=== PATIENT | female | born 1980 | race Caucasian/White ===

== ENCOUNTER 2016-06-12 14:59 | Outpatient (CLI) | payer MEDICAID | END 2016-06-12 15:00 | disposition home or self-care (01) | DX: M54.2 Cervicalgia (principal); M79.642 Pain in left hand ==

== ENCOUNTER 2016-07-01 07:41 | Outpatient (CLI) | payer MEDICAID | END 2016-07-01 07:42 | disposition home or self-care (01) | DX: M50.221 Other cervical disc displacement at C4-C5 level (principal); M50.321 Other cervical disc degeneration at C4-C5 level ==

== ENCOUNTER 2016-12-24 12:36 | Outpatient (CLI) | payer MEDICAID ==
[2016-12-24 12:55] LABS: ALBUMIN/GLOBULIN RATIO 1.3 (1.0-2.2); BILIRUBIN,TOTAL 0.5 mg/dL (0.2-1.0); BUN - BLOOD UREA NITROGEN 13 mg/dL (6-20); CALCIUM 9.5 mg/dL (8.5-10.3); CARBON DIOXIDE - CO2 21 mmol/L (21-32); CHLORIDE 107 mmol/L (101-111); CHOL/HDL RATIO 4.4 (<4.4); CHOLESTEROL 241 mg/dL; CREATININE 0.8 mg/dL (0.4-1.0); GFR - MDRD 80 (>89); GLUCOSE 87 mg/dL (70-100); HDL CHOLESTEROL 55 mg/dL; LDL/HDL RATIO 2.9 (<4.4); POTASSIUM 4.4 mmol/L (3.5-5.0); SODIUM 138 mmol/L (135-145); TOTAL PROTEIN 8.1 g/dL (6.7-8.2); TRIGLYCERIDES 126 mg/dL; VLDL CHOLESTEROL 25 mg/dL
[2016-12-24 13:04] LABS: BASOPHILS % (AUTO) 0.7 %; EOSINOPHILS # (AUTO) 0.1 10^3/uL (0.0-0.7); EOSINOPHILS % (AUTO) 2.1 %; HCT - HEMATOCRIT 36.2 % (37.0-47.0); HGB - HEMOGLOBIN 11.8 g/dL (12.0-16.0); LYMPHOCYTES # (AUTO) 1.5 10^3/uL (1.5-3.5); LYMPHOCYTES % (AUTO) 28.5 %; MEAN CORPUSCULAR HGB CONC 32.6 g/dL (32.0-36.0); MEAN CORPUSCULAR VOLUME 82.8 fL (81.0-99.0); MEAN PLATELET VOLUME 9.7 fL (7.9-10.8); MONOCYTES # (AUTO) 0.4 10^3/uL (0.0-1.0); MONOCYTES % (AUTO) 7.9 %; NEUTROPHILS # (AUTO) 3.2 10^3/uL (1.5-6.6); NEUTROPHILS % (AUTO) 60.8 %; NUCLEATED RED BLOOD CELLS AUTO 0.1 /100WBC; RED BLOOD COUNT 4.37 10^6/uL (4.20-5.40); RED CELL DISTRIBUTION WIDTH 15.9 % (12.0-15.0); UNCORRECTED WHITE BLOOD COUNT 5.3 x10^3/uL; WHITE BLOOD COUNT 5.3 x10^3/uL (4.8-10.8)
[2016-12-24 13:28] LABS: THYROID STIMULATING HORMONE 19.41 uIU/mL (0.34-5.60)
== END 2016-12-24 12:37 | disposition home or self-care (01) ==
LOC: LAB.N 12:36
PROVIDERS: ATTEND Family Medicine
DX: E03.9 Hypothyroidism, unspecified (principal); D50.9 Iron deficiency anemia, unspecified
CPT/HCPCS: 36415; 80053; 80061; 84439; 84443; 85025

== ENCOUNTER 2017-01-19 09:49 | Emergency (ER) | payer MEDICAID ==
[2017-01-19 10:03] VITALS: BP 119/79
[2017-01-19] MEDS ORDERED: ALBUTEROL NEB 2.5 MG/3 ML INH STA (10:04)
[2017-01-19] MEDS ORDERED: BENZONATATE 100 MG CAPSULE PO STA (10:04)
[2017-01-19] MEDS ORDERED: ALBUTEROL NEB 2.5 MG/3 ML INH ONE (10:21)
--- NOTE | 2017-01-19 10:25 | ED Physician Documentation ---
History of Present Illness - Stated complaint Stated Complaint: DIFF BREATHING - Chief complaint Chief Complaint: Resp - Additonal information Additional information: hx from pt 36 female denies preg slightly immunocompromised 2/2 meds for lupus to ER with 2 days of fever cough sore throat hoarse voice no NVD no travel both her twins are sick and checked into ER too Review of Systems Constitutional: reports: Fever Ears: denies: Ear pain Throat: reports: Sore throat Respiratory: reports: Cough GI: denies: Vomiting, Diarrhea : denies: Now EGA Immunocompromised: reports: Immunocompromised (slightly from lupus meds) PD PAST MEDICAL HISTORY - Past Medical History Past Medical History: Yes Cardiovascular: Deep vein thrombosis Neuro: Seizure disorder Endocrine/Autoimmune: HyPOthyroidism, Systemic lupus erythematosus Musculoskeletal: Fibromyalgia, Rheumatoid arthritis - 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, 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 - Present Medications Home Medications: Ambulatory Orders Medication Instructions Recorded Confirmed Albuterol Sulfate [Proair Hfa 2 puffs INH Q4H PRN #1 inhaler 01/19/17 Inhaler] Benzonatate [Tessalon] 100 mg PO TID PRN #20 capsule 01/19/17 Dextromethorphan/Benzocaine 1 each PO Q6H PRN #10 lozenge 01/19/17 [Cepacol Sorethroat-Cough Will] - Allergies Allergies/Adverse Reactions: Allergies Allergy/AdvReac Type Severity Reaction Status Date / Time nalbuphine [From Nubain] Allergy Unknown Verified 01/19/17 10:01 - Social History Does the pt smoke?: No Smoking Status: Never smoker PD ED PE NORMAL - Vitals Vital signs reviewed: Yes - General General: Alert and oriented X 3 - HEENT HEENT: PERRL, Ears normal, Moist mucous membranes. No: Pharynx benign (no enlarged tonsils but erythematous pharynx with PND) - Cardiac Cardiac: RRR - Respiratory Respiratory: No respiratory distress, Other (decreased debo, coughing) - Derm Derm: Normal color - Neuro Neuro: Alert and oriented X 3 Results - Vitals Vitals: Vital Signs - 24 hr 01/19/17 01/19/17 10:01 10:20 Temperature 36.2 C L Heart Rate 103 H 82 Respiratory 18 20 Rate Blood Pressure 119/79 O2 Saturation 98 Oxygen O2 Source Room air - Labs Labs: Laboratory Tests 01/19/17 10:40 Group A Strep Rapid Negative - Rads (name of study) CXR Radiology: See rad report (neg) Departure - Departure Disposition: 01 Home, Self Care Clinical Impression: Viral URI with cough Condition: Good Instructions: ED URI Viral W Wheezing Follow-Up: Wali Hernandez MD [Primary Care Provider] - Prescriptions: Albuterol Sulfate [Proair Hfa Inhaler] 2 puffs INH Q4H PRN #1 inhaler PRN Reason: Shortness Of Air/Wheezing Benzonatate [Tessalon] 100 mg PO TID PRN #20 capsule PRN Reason: to ease cough Dextromethorphan/Benzocaine [Cepacol Sorethroat-Cough Will] 1 each PO Q6H PRN # 10 lozenge PRN Reason: sore throat Comments: The chest xray did not show pneumonia and the rapid strep test was negative A throat culture will also be run and we will call you if it is positive. But right now, it looks like this is a viral infection. I have prescribed some medications to ease your symptoms. Some viral infections take up to two weeks to clear up so be patient. Follow up with your PMD or return to the ER if worse
[2017-01-19] MEDS ORDERED: BENZONATATE 100 MG CAPSULE PO ONE (10:27)
[2017-01-19 10:58] LABS: RAPID STREP SCREEN REAGENT QC YELLOW (YELLOW)
--- NOTE | 2017-01-19 11:28 | XRAY Preliminary Report ---
Exam: XR CHEST 2 VIEW PA/LAT IMPRESSION: Normal 2-view chest radiography. [facility] SITE ID: [id number]
--- NOTE | 2017-01-19 11:31 | XRAY Report ---
EXAM: CHEST RADIOGRAPHY EXAM DATE: 01/19/2017 10:51 AM. CLINICAL HISTORY: Cough, shortness of breath and fever COMPARISON: None. TECHNIQUE: 2 views. FINDINGS: Lungs/Pleura: No focal opacities evident. No pleural effusion. No pneumothorax. Normal volumes. Mediastinum: Heart and mediastinal contours are unremarkable. Other: None. IMPRESSION: Normal 2-view chest radiography. [facility] Referring Provider Line: [phone] SITE ID: [id number]
== END 2017-01-19 11:41 | disposition home or self-care (01) ==
LOC: ED 09:49
DX: J06.9 Acute upper respiratory infection, unspecified (principal); B97.89 Other viral agents as the cause of diseases classified elsewhere; M32.9 Systemic lupus erythematosus, unspecified; E03.9 Hypothyroidism, unspecified; M79.7 Fibromyalgia; M06.9 Rheumatoid arthritis, unspecified; Z86.718 Personal history of other venous thrombosis and embolism
CPT/HCPCS: 71020; 87070; 87430; 94640; 94664; 99283; A9270; J7613

== ENCOUNTER 2017-03-06 12:32 | Outpatient (CLI) | payer MEDICAID ==
[2017-03-06] MEDS ORDERED: BARIUM SULFATE 135 ML BOTTLE PO ONE (13:43)
[2017-03-06] MEDS ORDERED: BARIUM SULFATE 148 GM POWDER PO ONE (13:43)
--- NOTE | 2017-03-11 16:40 | XRAY Report ---
EXAMINATION: Esophagram 03/06/2017. CLINICAL INDICATION: Bloody vomiting. FINDINGS: Esophagram was performed in the upright and prone positions. The hypopharynx appears unremarkable. The esophagus demonstrates normal caliber and contractility. No esophageal ulceration, mass lesion, or stricturing is seen. A small sliding hiatal hernia was intermittently visualized, and did produce reflux. A 13 mm barium pill passed freely through the esophagus and into the stomach. IMPRESSION: Small sliding hiatal hernia, producing reflux. No evidence of ulceration or mass lesion. No stricturing seen. FLUOROSCOPY TIME: One minute 36 seconds; 19 spot images obtained. TD: 03/07/2017 05:00 ELISEO
== END 2017-03-06 12:33 | disposition home or self-care (01) ==
LOC: DI 12:32
PROVIDERS: ATTEND Surgery
DX: K44.9 Diaphragmatic hernia without obstruction or gangrene (principal); K21.9 Gastro-esophageal reflux disease without esophagitis
CPT/HCPCS: 74220; A9270

== ENCOUNTER 2017-04-10 10:07 | Emergency (ER) | payer MEDICAID ==
[2017-04-10 10:12] VITALS: BP 118/86
--- NOTE | 2017-04-10 10:12 | ED Physician Documentation ---
PD HPI URI - Stated complaint Stated Complaint: COUGH - History obtained from History obtained from: Patient - History of Present Illness Timing - onset: How many months ago (1) Timing duration: Months (1) Timing details: Gradual onset, Still present, Waxing and waning Associated symptoms: Ear pain, Nasal congestion, Rhinorrhea, Sore throat, Dry cough Contributing factors: Sick contact (twin daughters sick with similar) Improves by: Rest Similar symptoms before: Diagnosis (sinusitis) Recently seen: Not recently seen - Additional information Additional information: 36-year-old female with a history of lupus who is on immunosuppressive drugs has developed a cough and congestion over the past month. She has some pain in her right ear as well. She has 2 twin daughters who are 16 months old, both ill with otitis media. Review of Systems Constitutional: reports: Myalgias, Fatigue. denies: Fever Eyes: denies: Decreased vision Ears: reports: Ear pain Nose: reports: Rhinorrhea / runny nose, Congestion Throat: reports: Sore throat Cardiac: denies: Chest pain / pressure, Palpitations Respiratory: reports: Cough. 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 - Present Medications Home Medications: Ambulatory Orders Medication Instructions Recorded Confirmed Albuterol Sulfate [Proair Hfa 2 puffs INH Q4H PRN #1 inhaler 01/19/17 Inhaler] Benzonatate [Tessalon] 100 mg PO TID PRN #20 capsule 01/19/17 Dextromethorphan/Benzocaine 1 each PO Q6H PRN #10 lozenge 01/19/17 [Cepacol Sorethroat-Cough Will] Azithromycin [Zithromax] 200 mg PO DAILY #15 ml 04/10/17 Azithromycin [Zithromax] 250 mg PO DAILY #6 tablet 04/10/17 - Allergies Allergies/Adverse Reactions: Allergies Allergy/AdvReac Type Severity Reaction Status Date / Time nalbuphine [From Nubain] Allergy Unknown Verified 04/10/17 10:12 - Social History Does the pt smoke?: No Smoking Status: Never smoker PD ED PE NORMAL - Vitals Vital signs reviewed: Yes - General General: Alert and oriented X 3, No acute distress, Well developed/nourished - HEENT HEENT: Atraumatic, PERRL, EOMI, Other (The right TM is inflamed the left is clear. ) - Neck Neck: Supple, no meningeal sign, No bony TTP - Cardiac Cardiac: RRR, No murmur - Respiratory Respiratory: No respiratory distress, Clear bilaterally - Abdomen Abdomen: Soft, Non tender - Back Back: No CVA TTP, No spinal TTP - Extremities Extremities: No deformity, No edema - Neuro Neuro: Alert and oriented X 3, No motor deficit, No sensory deficit, Normal speech Eye Opening: Spontaneous Motor: Obeys Commands Verbal: Oriented GCS Score: 15 - Psych Psych: Normal mood, Normal affect Results - Vitals Vitals: Vital Signs - 24 hr 04/10/17 10:09 Temperature 36.6 C Heart Rate 94 Respiratory 20 Rate Blood Pressure 118/86 H O2 Saturation 98 Oxygen O2 Source Room air PD MEDICAL DECISION MAKING - ED course Complexity details: considered differential, d/w patient ED course: 28-year-old female with acute otitis media is administered dexamethasone 10 mg orally and we will place her on some azithromycin like her children. She was inadvertantly prescribed liquid zithromax at an inappropriate dose and this script has been correctly called in to the pharmacy. Departure - Departure Disposition: 01 Home, Self Care Clinical Impression: Otitis media Qualifiers: Otitis media type: suppurative Chronicity: acute Laterality: right Recurrence: not specified as recurrent Spontaneous tympanic membrane rupture: without spontaneous rupture Qualified Code(s): H66.001 - Acute suppurative otitis media without spontaneous rupture of ear drum, right ear Instructions: ED Otitis Media Acute Ch Follow-Up: Wali Hernandez MD [Primary Care Provider] - Prescriptions: Azithromycin [Zithromax] 200 mg PO DAILY #15 ml Azithromycin [Zithromax] 250 mg PO DAILY #6 tablet Discharge Date/Time: 04/10/17 10:25
== END 2017-04-10 10:25 | disposition home or self-care (01) ==
LOC: ED 10:07
DX: H66.001 Acute suppurative otitis media without spontaneous rupture of ear drum, right ear (principal); M32.9 Systemic lupus erythematosus, unspecified; Z79.899 Other long term (current) drug therapy; Z86.718 Personal history of other venous thrombosis and embolism; E03.9 Hypothyroidism, unspecified; M79.7 Fibromyalgia; M06.9 Rheumatoid arthritis, unspecified
CPT/HCPCS: 99283

== ENCOUNTER 2017-06-12 08:09 | Day surgery (SDC) | payer MEDICAID ==
[2017-06-12] MEDS ORDERED: LACTATED RINGERS 1,000 ML IV ONE (08:15)
[2017-06-12] MEDS ORDERED: MIDAZOLAM 2 MG/2 ML VIAL IVP ONE (09:10)
[2017-06-12] MEDS ORDERED: fentaNYL 100 MCG/2 ML VIAL IVP ONE (09:10)
--- NOTE | 2017-06-12 09:23 | HISTORY & PHYSICAL EXAMINATION ---
HPI - History of Present Illness HPI Comment/Other: Montserrat was seen in consultation in February for worsening GERD, dysphagia and hematemesis. She subsequently underwent a barium swallow which did not demonstrate any evidence of stricture or mass lesions. Her dysphagia and hematemesis have since resolved. She continues to have GERD on ranitidine 20 mg BID. She is not taking carafate as previously prescribed because her insurance did not cover it. She continues to smoke 1/4 pack per day. Current Meds: PROMETHAZINE HCL 25 MG ORAL TABLET (PROMETHAZINE HCL) Take one tablet by mouth at night, as needed for nausea RANITIDINE HCL 150 MG ORAL TABLET (RANITIDINE HCL) Take one tablet by mouth every evening EPINEPHRINE 0.3 MG/0.3ML INJECTION SOLUTION AUTO-INJECTOR (EPINEPHRINE) Inject one time STAT for anaphylaxis ADRENALIN 1 MG/ML INJECTION SOLUTION (EPINEPHRINE) Inject as directed STAT VENTOLIN HFA 108 (90 Base) MCG/ACT INHALATION AEROSOL SOLUTION (ALBUTEROL SULFATE) inhale 1-2 puffs every six hours as needed COLACE 100 MG ORAL CAPSULE (DOCUSATE SODIUM) Take one capsule by mouth twice daily as needed LEVETIRACETAM 500 MG ORAL TABLET (LEVETIRACETAM) Take one tablet by mouth twice daily CITALOPRAM HYDROBROMIDE 20 MG ORAL TABLET (CITALOPRAM HYDROBROMIDE) Take one tablet by mouth daily PLAQUENIL 200 MG ORAL TABLET (HYDROXYCHLOROQUINE SULFATE) Take two tablets by mouth daily IBUPROFEN 600 MG ORAL TABLET (IBUPROFEN) Take one tablet by mouth every 6 hours prn Past Medical History: Reviewed history from 02/20/2017 and no changes required: Lupus Seizures Tobacco abuse Esophagitis DVT severe iron-def anemia uterine fibroids Chronic neck pain GERD Past Surgical History: Reviewed history from 02/23/2016 and no changes required: Breast Lumpectomy 2009 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 Family History Summary: Reviewed history Last on 02/20/2017 and no changes required:02/25/2017 Mother (elle.) - Has Family History of Other Cancer - Entered On: 02/25/2017 General Comments - FH: Skin cancer g-mother Social History: Reviewed history from 02/23/2016 and no changes required: Smoking History: Patient currently smokes every day. Patient has been counseled to quit. Risk Factors: Smoked Tobacco Use: Current every day smoker Cigarettes: Yes -- 1/4 pack(s) per day,Drug use: no Alcohol use: no Exercise: yes Times per week: 7 Type of Exercise: walking Problems were reviewed with the patient during this visit. Medications were reviewed with the patient during this visit. Allergies were reviewed with the patient during this visit. Allergies: NUBAIN (Critical) * BEE STINGS (Critical) * RED ANT BITES (Critical) Physical Exam General: well developed, well nourished, in no acute distress Mouth: no deformity or lesions. Poor dentition specifically to lower teeth Neck: no masses, thyromegaly, or abnormal cervical nodes Lungs: clear bilaterally to A & P Heart: regular rate and rhythm, S1, S2 without murmurs, rubs, gallops, or clicks Abdomen: bowel sounds positive; abdomen soft and non-tender without masses, organomegaly, or hernias noted Pulses: pulses normal in all 4 extremities Extremities: no clubbing, cyanosis, edema, or deformity noted with normal full range of motion of all joints Cervical Nodes: no significant adenopathy Psych: alert and cooperative; normal mood and affect; normal attention span and concentration Impression & Recommendations: Problem # 1: dysphagia, GERD, hematemesis PMH/PSH - Past Medical History Cardiovascular: positive: Deep vein thrombosis Neuro: positive: Seizure disorder Endocrine/Autoimmune: positive: Systemic lupus erythematosus GI: positive: GERD Musculoskeletal: positive: Fibromyalgia, Rheumatoid arthritis MRSA Hx?: No - 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, 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, Other Social & Family Hx - Social History Does the pt smoke?: No Smoking Status: Never smoker Meds/Allgy - Home Medications Home Medications: Ambulatory Orders Medication Instructions Recorded Confirmed Albuterol Sulfate [Proair Hfa 2 puffs INH Q4H PRN #1 inhaler 01/19/17 06/12/17 Inhaler] Citalopram [CeleXA] 20 mg PO DAILY 06/12/17 06/12/17 Docusate Sodium 250Mg Capsule 250 mg PO DAILY 06/12/17 06/12/17 [Colace 250Mg Capsule] Hydroxychloroquine [Plaquenil] 2 tab PO DAILY 06/12/17 06/12/17 Ibuprofen 600 mg PO Q6HR PRN 06/12/17 06/12/17 Levetiracetam [Keppra] 500 mg PO BID 06/12/17 06/12/17 Omeprazole [PriLOSEC] 20 mg PO DAILY 06/12/17 06/12/17 Promethazine [Phenergan] 25 mg PO Q6HR PRN 06/12/17 06/12/17 - Allergies Allergies/Adverse Reactions: Allergies Allergy/AdvReac Type Severity Reaction Status Date / Time nalbuphine [From Nubain] Allergy Unknown Verified 04/10/17 10:12 Exam - Vital Signs Vital Signs: Vital Signs x48h Temp Pulse Resp BP Pulse Ox 06/12/17 08:29 36.7 C 88 14 124/58 L 100
[2017-06-12 10:18] VITALS: BP 114/71
== END 2017-06-12 08:10 | disposition home or self-care (01) ==
LOC: SDS 08:09
PROVIDERS: ATTEND Surgery
PROC: 0DB68ZX Excision of Stomach, Via Natural or Artificial Opening Endoscopic, Diagnostic (ICD-10-PCS; principal; 2017-06-12 09:15)
DX: R13.10 Dysphagia, unspecified (principal); K44.9 Diaphragmatic hernia without obstruction or gangrene; K29.50 Unspecified chronic gastritis without bleeding; K92.0 Hematemesis; Z86.718 Personal history of other venous thrombosis and embolism; G40.909 Epilepsy, unspecified, not intractable, without status epilepticus; K21.9 Gastro-esophageal reflux disease without esophagitis; M32.9 Systemic lupus erythematosus, unspecified; M06.9 Rheumatoid arthritis, unspecified
CPT/HCPCS: 43239; J7120

== ENCOUNTER 2017-08-16 09:06 | Emergency (ER) | payer MEDICAID ==
[2017-08-16 09:22] VITALS: BP 120/77
[2017-08-16] MEDS ORDERED: DEXAMETHASONE 10 MG/ML VIAL PO STA (09:50)
--- NOTE | 2017-08-16 10:10 | ED Physician Documentation ---
PD HPI HEENT - Stated complaint Stated Complaint: RT EAR PX - Chief complaint Chief Complaint: Heent - History obtained from History obtained from: Patient - History of Present Illness Timing - onset: How many weeks ago (1) Timing - duration: Weeks (1) Timing - details: Gradual onset, Still present Location: Right ear, Throat Improves: Medication Worsens: Swalllowing Associated symptoms: Congestion, Rhinorrhea, Swollen nodes, Cough Similar symptoms before: Diagnosis (OM) Recently seen: Not recently seen - Additional information Additional information: 37-year-old female with twin [id number] daughters who are ill with otitis media has developed a cough and congestion and right ear pain with pain in her throat down the right side as well. She has had this previously back in March and this improved rapidly with treatment with azithromycin and dexamethasone. Her daughter is in here today with recurrence of symptoms after treatment about 3 weeks ago with azithromycin. We are switching the daughter to Augmentin today and we will switch the mother as well. Review of Systems Constitutional: denies: Fever Eyes: denies: Decreased vision Ears: reports: Ear pain Nose: reports: Rhinorrhea / runny nose, Congestion Throat: reports: Sore throat Cardiac: denies: Chest pain / pressure, Palpitations Respiratory: reports: Cough. 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, Other - Present Medications Home Medications: Ambulatory Orders Medication Instructions Recorded Confirmed Albuterol Sulfate [Proair Hfa 2 puffs INH Q4H PRN #1 inhaler 01/19/17 06/12/17 Inhaler] Citalopram [CeleXA] 20 mg PO DAILY 06/12/17 06/12/17 Docusate Sodium 250Mg Capsule 250 mg PO DAILY 06/12/17 06/12/17 [Colace 250Mg Capsule] Hydroxychloroquine [Plaquenil] 2 tab PO DAILY 06/12/17 06/12/17 Ibuprofen 600 mg PO Q6HR PRN 06/12/17 06/12/17 Levetiracetam [Keppra] 500 mg PO BID 06/12/17 06/12/17 Omeprazole [PriLOSEC] 20 mg PO DAILY 06/12/17 06/12/17 Promethazine [Phenergan] 25 mg PO Q6HR PRN 06/12/17 06/12/17 Amox/Clav 875/125 [Augmentin] 1 each PO Q12H #20 tablet 08/16/17 - Allergies Allergies/Adverse Reactions: Allergies Allergy/AdvReac Type Severity Reaction Status Date / Time nalbuphine [From Nubain] Allergy Unknown Verified 04/10/17 10:12 - Social History Does the pt smoke?: No Smoking Status: Never smoker PD ED PE NORMAL - Vitals Vital signs reviewed: Yes (low grade fever) - General General: No acute distress, Well developed/nourished - HEENT HEENT: Atraumatic, PERRL, EOMI, Other (There is erythema and distortion of landmarks on the right TM and the left is much less involved. The pharynx is with swelling of the right tonsil more than the left. ) - Neck Neck: Supple, no meningeal sign, No bony TTP, Other (shoddy adenopathy bilaterally .) - Cardiac Cardiac: RRR, No murmur - Respiratory Respiratory: No respiratory distress, Clear bilaterally - Abdomen Abdomen: Soft, Non tender - Back Back: No CVA TTP, No spinal TTP - Derm Derm: Normal color, Warm and dry, No rash - Extremities Extremities: No deformity, No edema - Neuro Neuro: Alert and oriented X 3, No motor deficit, No sensory deficit, Normal speech Eye Opening: Spontaneous Motor: Obeys Commands Verbal: Oriented GCS Score: 15 - Psych Psych: Normal mood, Normal affect Results - Vitals Vitals: Vital Signs - 24 hr 08/16/17 09:21 Temperature 37.6 C H Heart Rate 82 Respiratory 16 Rate Blood Pressure 120/77 O2 Saturation 100 Oxygen O2 Source Room air PD MEDICAL DECISION MAKING - ED course Complexity details: considered differential, d/w patient ED course: 37-year-old female with another episode of otitis after prior successful treatment with azithromycin. Her daughter is being switched to Augmentin today we will switch the mother to Augmentin as well. She is administered 10 mg of dexamethasone. Departure - Departure Disposition: 01 Home, Self Care Clinical Impression: Otitis media Qualifiers: Otitis media type: suppurative Chronicity: acute Laterality: bilateral Recurrence: not specified as recurrent Spontaneous tympanic membrane rupture: without spontaneous rupture Qualified Code(s): H66.003 - Acute suppurative otitis media without spontaneous rupture of ear drum, bilateral Condition: Stable Instructions: ED Otitis Media Acute Adult Follow-Up: Wali Hernandez MD [Primary Care Provider] - Prescriptions: Amox/Clav 875/125 [Augmentin] 1 each PO Q12H #20 tablet
== END 2017-08-16 10:18 | disposition home or self-care (01) ==
LOC: ED 09:06
DX: H66.003 Acute suppurative otitis media without spontaneous rupture of ear drum, bilateral (principal); M32.9 Systemic lupus erythematosus, unspecified; M06.9 Rheumatoid arthritis, unspecified; Z86.718 Personal history of other venous thrombosis and embolism
CPT/HCPCS: 99283

== ENCOUNTER → 2017-11-20 | Outpatient (CLI) | payer MEDICAID ==
[2017-11-20 13:33] LABS: BASOPHILS % (AUTO) 0.9 %; EOSINOPHILS # (AUTO) 0.1 10^3/uL (0.0-0.7); EOSINOPHILS % (AUTO) 1.6 %; HGB - HEMOGLOBIN 11.2 g/dL (12.0-16.0); LYMPHOCYTES # (AUTO) 1.5 10^3/uL (1.5-3.5); LYMPHOCYTES % (AUTO) 33.2 %; MEAN CORPUSCULAR HEMOGLOBIN 26.1 pg (27.0-31.0); MEAN CORPUSCULAR HGB CONC 32.6 g/dL (32.0-36.0); MEAN CORPUSCULAR VOLUME 80.1 fL (81.0-99.0); MEAN PLATELET VOLUME 8.9 fL (7.9-10.8); MONOCYTES # (AUTO) 0.4 10^3/uL (0.0-1.0); MONOCYTES % (AUTO) 8.9 %; NEUTROPHILS # (AUTO) 2.5 10^3/uL (1.5-6.6); NEUTROPHILS % (AUTO) 55.4 %; PLT - PLATELET COUNT 233 10^3/uL (130-450); RED BLOOD COUNT 4.29 10^6/uL (4.20-5.40); RED CELL DISTRIBUTION WIDTH 17.1 % (12.0-15.0); WHITE BLOOD COUNT 4.4 x10^3/uL (4.8-10.8)
[2017-11-20 13:50] LABS: ALBUMIN 4.4 g/dL (3.2-5.5); ALBUMIN/GLOBULIN RATIO 1.3 (1.0-2.2); ALKALINE PHOSPHATASE 58 IU/L (42-121); ALT ALANINE AMINOTRANSFERASE 12 IU/L (10-60); AST ASPARTATE AMINOTRANSFERASE 16 IU/L (10-42); BILIRUBIN,TOTAL 0.3 mg/dL (0.2-1.0); BUN - BLOOD UREA NITROGEN 12 mg/dL (6-20); CALCIUM 9.1 mg/dL (8.5-10.3); CARBON DIOXIDE - CO2 22 mmol/L (21-32); CHLORIDE 105 mmol/L (101-111); CHOL/HDL RATIO 3.6 (<4.4); CHOLESTEROL 263 mg/dL; CREATININE 0.8 mg/dL (0.4-1.0); GFR - MDRD 80 (>89); GLUCOSE 89 mg/dL (70-100); HDL CHOLESTEROL 74 mg/dL; LDL CHOLESTEROL,CALCULATED 175 mg/dL; LDL/HDL RATIO 2.4 (<4.4); LIPASE 24 U/L (22-51); SODIUM 135 mmol/L (135-145); TOTAL PROTEIN 7.8 g/dL (6.7-8.2); VLDL CHOLESTEROL 14 mg/dL
[2017-11-20 14:30] LABS: THYROID STIMULATING HORMONE 17.41 uIU/mL (0.34-5.60)
[2017-11-20 14:35] LABS: FREE T4 (FREE THYROXINE) 0.59 ng/dL (0.58-1.64)
[2017-11-20 14:58] LABS: FOLLICLE STIMULATING HORMONE 5.49 mIU/mL
[2017-11-20 14:59] LABS: LUTEINIZING HORMONE 8.28 mIU/mL
== END ==
LOC: LAB.N 08:00
PROVIDERS: ATTEND Family Medicine
DX: N92.6 Irregular menstruation, unspecified (principal); R10.2 Pelvic and perineal pain; Z51.81 Encounter for therapeutic drug level monitoring; E03.9 Hypothyroidism, unspecified
CPT/HCPCS: 36415; 80053; 80061; 83001; 83002; 83690; 83721; 84439; 84443; 85025; 85651

== ENCOUNTER 2017-12-03 08:11 | Outpatient (CLI) | payer MEDICAID ==
--- NOTE | 2017-12-03 13:41 | Ultrasound Report ---
Reason: MENSES IRREGULAR, PELVIC PAIN, CHRONIC Procedure Date: 12/03/2017 Accession Number: [id number] / [id number] Procedure: US - Pelvic w/Transvaginal CPT Code: FULL RESULT: EXAM: PELVIC ULTRASOUND EXAM DATE: 12/03/2017 09:07 AM. CLINICAL HISTORY: MENSES IRREGULAR, PELVIC PAIN, CHRONIC. COMPARISON: None. TECHNIQUE: Realtime transabdominal pelvic scan performed to identify the uterus and adnexa and as an overview of other pelvic structures, followed by transvaginal scan to provide greater detail of the uterus and adnexa, with static image documentation. FINDINGS: Uterus: 11.0 x 6.5 x 4.6 cm, volume 172 cc. Anteverted position. Normal overall size and echotexture. Masses: None. Endometrium: 3 mm. Normal. Cervix: Unremarkable. Right Ovary: 2.8 x 2.5 x 2.5 cm, volume 9 cc. Normal echotexture and blood flow. Left Ovary: 2.7 x 2.1 x 1.2 cm, volume 4 cc. Normal echotexture and blood flow. Free Fluid: None. IMPRESSION: There are no findings to suggest a cause of the patient's symptoms [facility]
== END 2017-12-03 08:12 | disposition home or self-care (01) ==
LOC: DI 08:11
PROVIDERS: ATTEND Family Medicine
DX: N92.6 Irregular menstruation, unspecified (principal); R10.2 Pelvic and perineal pain
CPT/HCPCS: 76830; 76856

== ENCOUNTER 2018-07-03 15:37 | Outpatient (CLI) | payer MEDICAID ==
--- NOTE | 2018-07-04 15:34 | XRAY Report ---
Reason: HIP PAIN Procedure Date: 07/03/2018 Accession Number: [id number] / [id number] Procedure: XRN - Hips 2V BILAT CPT Code: FULL RESULT: EXAM: BILATERAL HIP RADIOGRAPHY EXAM DATE: 07/03/2018 03:57 PM. CLINICAL HISTORY: HIP PAIN. COMPARISON: None. TECHNIQUE: 2 views each. FINDINGS: Bones: No fractures or bone lesion. Right Hip: No dislocation. The hip joint space is preserved. Left Hip: No dislocation. The hip joint space is preserved. Soft Tissues: No periarticular calcification or soft tissue swelling. IMPRESSION: Unremarkable bilateral hip radiography. [facility]
--- NOTE | 2018-07-04 15:36 | XRAY Report ---
Reason: KNEE PAIN Procedure Date: 07/03/2018 Accession Number: [id number] / [id number] Procedure: XRN - Knee 3 View BILAT CPT Code: FULL RESULT: EXAMS: 1. Right Knee Radiography 2. Left Knee Radiography EXAM DATE:07/03/2018 04:28 PM. CLINICAL HISTORY:KNEE PAIN. COMPARISON: HIP BILAT 07/03/2018 3:57 PM. TECHNIQUE: 3 views each. FINDINGS: Right Knee: Bones: No fractures or bone lesions. Joints: No significant degenerative process. No effusion. No subluxations. Soft Tissues: No intra-, periarticular calcification or soft tissue swelling. Left Knee: Bones: Normal. No fractures or bone lesions. Joints: No significant degenerative process. No effusion. No subluxations. Soft Tissues: No intra-, periarticular calcification or soft tissue swelling. IMPRESSION: Unremarkable bilateral knee x-ray. [facility]
== END 2018-07-03 15:38 | disposition home or self-care (01) ==
LOC: DI.N 15:37
PROVIDERS: ATTEND Nurse Practitioner
DX: M25.559 Pain in unspecified hip (principal); M25.561 Pain in right knee; M25.562 Pain in left knee
CPT/HCPCS: 73521

== ENCOUNTER 2018-07-24 08:15 | Outpatient (CLI) | payer MEDICAID ==
--- NOTE | 2018-07-24 15:04 | Ultrasound Report ---
Reason: CHRONIC PELVIC PAIN, IRREGULAR MENSES Procedure Date: 07/24/2018 Accession Number: [id number] / [id number] Procedure: US - Pelvic Complete CPT Code: FULL RESULT: EXAM: PELVIC ULTRASOUND EXAM DATE: 07/24/2018 09:05 AM. CLINICAL HISTORY: Chronic pelvic pain, irregular menses. History of COMPARISON: 12/03/2017 pelvic ultrasound. TECHNIQUE: Realtime transabdominal pelvic scan performed to identify the uterus and adnexa and as an overview of other pelvic structures with static image documentation. Patient declined transvaginal examination. FINDINGS: Uterus: 11.6 x 5.3 x 7.5 cm, volume 243 cc. Anteverted position. Normal overall size and mildly heterogeneous echotexture. Masses: None. Endometrium: 8 mm. Normal. Cervix: Unremarkable. Right Ovary: 3.3 x 2 x 2.6 cm, volume 8.8 cc. Normal echotexture and blood flow. Left Ovary: 2.5 x 1.9 x 3.1 cm, volume 7.7 cc. Normal echotexture and blood flow. Free Fluid: None. Other: None. IMPRESSION: No significant abnormality pelvic ultrasound. [facility]
== END 2018-07-24 08:16 | disposition home or self-care (01) ==
LOC: DI 08:15
PROVIDERS: ATTEND Nurse Practitioner
DX: N92.6 Irregular menstruation, unspecified (principal); R10.2 Pelvic and perineal pain
CPT/HCPCS: 76856

== ENCOUNTER 2018-07-24 08:16 | Outpatient (CLI) | payer MEDICAID ==
--- NOTE | 2018-07-24 10:19 | Mammography Report ---
Reason: BILAT BREAST LUMPS Procedure Date: 07/24/2018 Accession Number: [id number] / [id number] Procedure: BENNIE - Diagnostic Dig Bilat CPT Code: FULL RESULT: EXAM: Diagnostic Dig Bilat DATE: 07/24/2018 9:56 AM CLINICAL HISTORY: Bilateral lateral breast tenderness. TECHNIQUE: (B) - Bilateral CC and MLO views were obtained. COMPARISON: New baseline examination. PARENCHYMAL PATTERN: (D) - The breasts demonstrate heterogeneously dense fibroglandular parenchyma bilaterally. FINDINGS: 2 biopsy clips are noted in the left breast. A benign-appearing left upper outer quadrant lymph node is present. There are no suspicious masses, micro-calcifications, skin thickening or areas of distortion. IMPRESSION: Benign findings. BI-RADS category 2. RECOMMENDATION: (ANNUAL) - Recommend routine annual screening mammography. BI-RADS CATEGORY: 2 STANDARD QUALIFYING STATEMENTS: 1. This examination was not reviewed with the aid of Computer-Aided Detection (CAD). 2. A negative or benign imaging report should not preclude biopsy if clinically suspicious findings are present. 3. Dense breasts may obscure an underlying neoplasm. 4. This examination was reviewed with the aid of 3D breast imaging (tomosynthesis).
== END 2018-07-24 08:17 | disposition home or self-care (01) ==
LOC: DI 08:16
PROVIDERS: ATTEND Nurse Practitioner
DX: N63.20 Unspecified lump in the left breast, unspecified quadrant (principal); N63.10 Unspecified lump in the right breast, unspecified quadrant; N92.6 Irregular menstruation, unspecified; R10.2 Pelvic and perineal pain
CPT/HCPCS: 76856; 77066

== ENCOUNTER 2018-12-10 08:08 | Outpatient (CLI) | payer MEDICAID ==
[2018-12-10 12:19] LABS: BASOPHILS % (AUTO) 0.8 %; EOSINOPHILS # (AUTO) 0.1 10^3/uL (0.0-0.7); HGB - HEMOGLOBIN 12.8 g/dL (12.0-16.0); LYMPHOCYTES # (AUTO) 1.4 10^3/uL (1.5-3.5); LYMPHOCYTES % (AUTO) 28.5 %; MEAN CORPUSCULAR HEMOGLOBIN 27.9 pg (27.0-31.0); MEAN CORPUSCULAR HGB CONC 31.1 g/dL (32.0-36.0); MEAN CORPUSCULAR VOLUME 89.7 fL (81.0-99.0); MEAN PLATELET VOLUME 10.9 fL (7.9-10.8); MONOCYTES # (AUTO) 0.4 10^3/uL (0.0-1.0); MONOCYTES % (AUTO) 7.6 %; NEUTROPHILS % (AUTO) 60.7 %; RED BLOOD COUNT 4.58 10^6/uL (4.20-5.40); WHITE BLOOD COUNT 4.9 x10^3/uL (4.8-10.8)
[2018-12-10 12:48] LABS: PLATELET ESTIMATE, MANUAL NORMAL (130-450,000) (NORMAL); PLATELET MORPHOLOGY PLATELET CLUMPING (NORMAL); RBC MORPHOLOGY (MULTIPLE) NORMAL APPEARANCE (NORMAL)
[2018-12-10 13:05] LABS: HB2 TOTAL 13.6 g/dL; HEMOGLOBIN A1C 0.49 g/dL; HEMOGLOBIN A1C % 5.4 % (4.6-6.2)
[2018-12-10 13:09] LABS: ALBUMIN 4.6 g/dL (3.2-5.5); ALBUMIN/GLOBULIN RATIO 1.4 (1.0-2.2); ALKALINE PHOSPHATASE 71 IU/L (42-121); BILIRUBIN,TOTAL 0.4 mg/dL (0.2-1.0); BUN - BLOOD UREA NITROGEN 17 mg/dL (6-20); CALCIUM 9.5 mg/dL (8.5-10.3); CARBON DIOXIDE - CO2 24 mmol/L (21-32); CHLORIDE 103 mmol/L (101-111); CHOLESTEROL 246 mg/dL; CREATININE 0.8 mg/dL (0.4-1.0); GFR - MDRD 79 (>89); GLUCOSE 90 mg/dL (70-100); SODIUM 137 mmol/L (135-145); TOTAL PROTEIN 7.9 g/dL (6.7-8.2); VLDL CHOLESTEROL 14 mg/dL
[2018-12-10 13:51] LABS: ALT ALANINE AMINOTRANSFERASE 14 IU/L (10-60); AST ASPARTATE AMINOTRANSFERASE 18 IU/L (10-42); CHOL/HDL RATIO 4.1 (<4.4); HDL CHOLESTEROL 60 mg/dL; LDL CHOLESTEROL,CALCULATED 172 mg/dL; LDL/HDL RATIO 2.9 (<4.4)
[2018-12-10 14:19] LABS: FREE T4 (FREE THYROXINE) 0.55 ng/dL (0.58-1.64)
== END 2018-12-10 08:15 | disposition home or self-care (01) ==
LOC: LAB.N 08:08
PROVIDERS: ATTEND Family Medicine
DX: E03.9 Hypothyroidism, unspecified (principal); Z13.1 Encounter for screening for diabetes mellitus
CPT/HCPCS: 36415; 80053; 80061; 83036; 83721; 84439; 84443; 85025

== ENCOUNTER 2019-03-30 18:56 | Emergency (ER) | payer MEDICAID ==
--- NOTE | 2019-03-30 19:56 | XRAY Report ---
Reason: knee inj Procedure Date: 03/30/2019 Accession Number: [id number] / [id number] Procedure: XR - Knee 4 View RT CPT Code: Final Report FULL RESULT: EXAM: RIGHT KNEE RADIOGRAPHY EXAM DATE: 03/30/2019 07:33 PM. CLINICAL HISTORY: Knee inj. Fall, right knee pain. COMPARISON: None. TECHNIQUE: 4 views. FINDINGS: Bones: Normal. No fractures or bone lesions. Joints: Normal. No effusion. No subluxations. Soft Tissues: Normal. No soft tissue swelling. IMPRESSION: Normal right knee radiography. [facility]
[2019-03-30] MEDS ORDERED: IBUPROFEN 800 MG TABLET PO STA (20:02)
--- NOTE | 2019-03-30 20:05 | ED Physician Documentation ---
PD HPI LOWER EXT INJURY - Stated complaint Stated Complaint: R KNEE PX - Chief complaint Chief Complaint: Trauma Ext - History obtained from History obtained from: Patient - History of Present Illness PD HPI LOW EXT INJURY LOCATION: Right Type of injury: Fall, Twist Timing - onset: Today (She was turning and she felt a pop in the back of the knee. Then she fell right on the knee. Since then she cannot walk or bear weight on it. 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 - Present Medications Home Medications: Ambulatory Orders Medication Instructions Recorded Confirmed Albuterol Sulfate [Proair Hfa 2 puffs INH Q4H PRN #1 inhaler 01/19/17 06/12/17 Inhaler] Citalopram [CeleXA] 20 mg PO DAILY 06/12/17 06/12/17 Docusate Sodium 250Mg Capsule 250 mg PO DAILY 06/12/17 06/12/17 [Colace 250Mg Capsule] Hydroxychloroquine [Plaquenil] 2 tab PO DAILY 06/12/17 06/12/17 Ibuprofen 600 mg PO Q6HR PRN 06/12/17 06/12/17 Levetiracetam [Keppra] 500 mg PO BID 06/12/17 06/12/17 Omeprazole [PriLOSEC] 20 mg PO DAILY 06/12/17 06/12/17 Promethazine [Phenergan] 25 mg PO Q6HR PRN 06/12/17 06/12/17 Amox/Clav 875/125 [Augmentin] 1 each PO Q12H #20 tablet 08/16/17 Ibuprofen [Motrin] 800 mg PO Q8H PRN #30 tablet 03/30/19 - Allergies Allergies/Adverse Reactions: Allergies Allergy/AdvReac Type Severity Reaction Status Date / Time nalbuphine [From Nubain] Allergy Unknown Verified 03/30/19 18:58 - Social History Does the pt smoke?: No Smoking Status: Never smoker PD ED PE NORMAL - Vitals Vital signs reviewed: Yes - General General: Alert and oriented X 3, No acute distress - Extremities Extremities: Other (Right knee demonstrates a moderate effusion, mild tenderness to the lateral joint line, ACL, PCL, LCL testing is all intact. So is the MCL. She has positive grind testing. No deformity.) - Neuro Neuro: Alert and oriented X 3, Normal speech Results - Vitals Vitals: Vital Signs - 24 hr 03/30/19 18:59 Temperature 36.5 C Heart Rate 78 Respiratory 14 Rate Blood Pressure 138/90 H O2 Saturation 98 Oxygen O2 Source Room air - Rads (name of study) R knee 4v Radiology: EMP read contemporaneously (Normal) PD MEDICAL DECISION MAKING - ED course ED course: Examination most consistent with an Medial meniscus injury. She is placed in a knee immobilizer. X-rays are negative. Given crutches. Advised on orthopedic follow-up and light duty. Departure - Departure Disposition: Home, Self Care Clinical Impression: Knee sprain Qualifiers: Encounter type: initial encounter Involved ligament of knee: unspecified ligament Laterality: right Qualified Code(s): S83.91XA - Sprain of unspecified site of right knee, initial encounter Condition: Good Record reviewed to determine appropriate education?: Yes Instructions: ED Sprain Knee Follow-Up: Hi Goldstein MD [Provider Admit Priv/Credential] - Prescriptions: Ibuprofen [Motrin] 800 mg PO Q8H PRN #30 tablet PRN Reason: PAIN &/OR FEVER Comments: Follow-up with the orthopedic surgeon next week if not better, return for new or worsening symptoms. You can may walk and bear weight as tolerated given that the x-ray is normal, but she can use the crutches as needed. You do not need this wear the splint when showering or sleeping, but she should use it when up and around. Forms: Activity restrictions
[2019-03-30 20:48] VITALS: BP 132/90
== END 2019-03-30 20:48 | disposition home or self-care (01) ==
LOC: ED 18:56
DX: S83.91XA Sprain of unspecified site of right knee, initial encounter (principal); X50.1XXA Overexertion from prolonged static or awkward postures, initial encounter
CPT/HCPCS: 73564; 99283; A9270

== ENCOUNTER 2019-05-03 07:48 | Outpatient (CLI) | payer MEDICAID | END 2019-05-03 23:59 | disposition home or self-care (01) | LOC: LAB.N 07:48 | PROVIDERS: ATTEND Nurse Practitioner Gerontology | DX: E03.9 Hypothyroidism, unspecified (principal) | CPT/HCPCS: 36415; 84443 ==

== ENCOUNTER 2019-06-10 16:38 | Outpatient (CLI) | payer MEDICAID ==
--- NOTE | 2019-06-11 10:35 | MRI Report ---
Reason: PAIN IN RT KNEE JOINT Procedure Date: 06/10/2019 Accession Number: [id number] / [id number] Procedure: MRI - Knee RT W/O CPT Code: Final Report FULL RESULT: EXAM: RIGHT KNEE MRI WITHOUT CONTRAST EXAM DATE: 06/10/2019 06:51 PM. CLINICAL HISTORY: Right knee joint pain. Patient slipped and fell in snow in March. Pain is primarily posterior and lateral. Buckling. COMPARISON: 03/30/2019 radiograph. TECHNIQUE: Multiplanar, multisequence T1-weighted and fluid-sensitive sequences of the knee without contrast. Other: None. FINDINGS: Bones: No fractures or subluxations. No marrow edema. No bone lesions. Articular Cartilage: Unremarkable. Medial Meniscus: The medial meniscus is intact. Lateral Meniscus: The lateral meniscus is intact. Cruciate Ligaments: The anterior and posterior cruciate ligaments are intact. Collateral Ligaments: The medial collateral and lateral collateral ligamentous structures are intact. Tendons: The quadriceps, patellar, semimembranosus, and popliteus tendons are unremarkable. Musculature: No edema or fatty atrophy. Other: No effusion. There is a small popliteal cyst. No loose bodies. The medial and lateral retinacula are intact. Prepatellar subcutaneous edema is present. Mild edema in the suprapatellar fat pad is nonspecific. IMPRESSION: Small popliteal cyst. RADIA
== END 2019-06-10 16:39 | disposition home or self-care (01) ==
LOC: DI 16:38
PROVIDERS: ATTEND Orthopaedic Surgery Sports Medicine
DX: M71.21 Synovial cyst of popliteal space [Baker], right knee (principal)

== ENCOUNTER 2019-08-09 07:00 | Outpatient (CLI) | payer MEDICAID | END 2019-08-09 23:59 | disposition home or self-care (01) | LOC: LAB.R 07:00 | PROVIDERS: ATTEND Nurse Practitioner | DX: R05 Cough (principal) | CPT/HCPCS: 81599 ==

== ENCOUNTER 2019-08-11 09:56 | Emergency (ER) | payer MEDICAID ==
[2019-08-11 10:02] VITALS: BP 179/91
--- NOTE | 2019-08-11 11:34 | XRAY Report ---
Reason: cough, shortness of breath Procedure Date: 08/11/2019 Accession Number: [id number] / [id number] Procedure: XR - Chest 2 View X-Ray CPT Code: 78575 Final Report FULL RESULT: EXAM: CHEST RADIOGRAPHY EXAM DATE: 08/11/2019 10:55 AM. CLINICAL HISTORY: Cough, shortness of breath. COMPARISON: CHEST 2 VIEW PA/LAT 01/19/2017 10:12 AM. TECHNIQUE: 2 views. FINDINGS: Lungs/Pleura: No focal opacities evident. No pleural effusion. No pneumothorax. Normal volumes. Mediastinum: Heart and mediastinal contours are unremarkable. Other: None. IMPRESSION: Normal 2-view chest radiography. RADIA
--- NOTE | 2019-08-11 11:39 | ED Physician Documentation ---
History of Present Illness - Stated complaint Stated Complaint: SOA/COUGH - Chief complaint Chief Complaint: Resp - Additonal information Additional information: Patient comes emergency department complaining of cough for the last several day s. She states that she has also had some nausea with this. She states that she is up all night coughing and that she does not know what else to do. She states that it all started last week with an upper respiratory type illness and progressed to her chest. She states she is coughing up minimal phlegm at this time. The patient went to her primary care physician's office couple of days ago and was tested for influenza and COVID and found to be negative. She denies any fevers that she knows of. Patient is not a smoker. She states she is having chest and back pain. No abdominal pain. No other complaints at this time Review of Systems Ten Systems: 10 systems reviewed and negative Constitutional: reports: Reviewed and negative Eyes: reports: Reviewed and negative Ears: reports: Reviewed and negative Nose: reports: Reviewed and negative Throat: reports: Reviewed and negative Cardiac: reports: Chest pain / pressure Respiratory: reports: Cough GI: reports: Reviewed and negative : reports: Reviewed and negative Skin: reports: Reviewed and negative Musculoskeletal: reports: Back pain Neurologic: reports: Reviewed and negative Psychiatric: reports: Reviewed and negative Endocrine: reports: Reviewed and negative Immunocompromised: reports: Reviewed and negative PD PAST MEDICAL HISTORY - Past Medical History Cardiovascular: Deep vein thrombosis Endocrine/Autoimmune: Systemic lupus erythematosus GI: GERD Musculoskeletal: Fibromyalgia, Rheumatoid arthritis - Past Surgical History 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, 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, 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 - Present Medications Home Medications: Ambulatory Orders Medication Instructions Recorded Confirmed Albuterol Sulfate [Proair Hfa 2 puffs INH Q4H PRN #1 inhaler 01/19/17 06/12/17 Inhaler] Citalopram [CeleXA] 20 mg PO DAILY 06/12/17 06/12/17 Docusate Sodium 250Mg Capsule 250 mg PO DAILY 06/12/17 06/12/17 [Colace 250Mg Capsule] Hydroxychloroquine [Plaquenil] 2 tab PO DAILY 06/12/17 06/12/17 Ibuprofen 600 mg PO Q6HR PRN 06/12/17 06/12/17 Levetiracetam [Keppra] 500 mg PO BID 06/12/17 06/12/17 Omeprazole [PriLOSEC] 20 mg PO DAILY 06/12/17 06/12/17 Promethazine [Phenergan] 25 mg PO Q6HR PRN 06/12/17 06/12/17 Amox/Clav 875/125 [Augmentin] 1 each PO Q12H #20 tablet 08/16/17 Ibuprofen [Motrin] 800 mg PO Q8H PRN #30 tablet 03/30/19 Acetaminophen/Cod 300/30 [Tylenol 2 each PO Q4-6H PRN #15 tablet 08/11/19 #3] - Allergies Allergies/Adverse Reactions: Allergies Allergy/AdvReac Type Severity Reaction Status Date / Time nalbuphine [From Nubain] Allergy Unknown Verified 08/11/19 10:02 - Social History Does the pt smoke?: No Smoking Status: Never smoker PD ED PE NORMAL - Vitals Vital signs reviewed: Yes - General General: Alert and oriented X 3, No acute distress, Well developed/nourished - HEENT HEENT: Atraumatic, PERRL, EOMI, Moist mucous membranes - Neck Neck: Supple, no meningeal sign - Cardiac Cardiac: RRR, No murmur, Strong equal pulses - Respiratory Respiratory: No respiratory distress, Clear bilaterally, Other (Patient has intermittent bouts of dry cough) - Abdomen Abdomen: Soft, Non tender, Non distended - Derm Derm: Normal color, Warm and dry, No rash - Extremities Extremities: No deformity, No edema, No calf tenderness / cord - Neuro Neuro: Alert and oriented X 3, Other (Grossly normal) - Psych Psych: Normal mood, Normal affect Results - Vitals Vitals: Oxygen O2 Source Room air - Rads (name of study) chest xray Radiology: Final report received, EMP read indepedently, See rad report PD MEDICAL DECISION MAKING - ED course Complexity details: reviewed old records, reviewed results, re-evaluated patient, considered differential, d/w patient ED course: Patient was worked up with a chest x-ray, which was found to be unremarkable. She had already been tested for Covidien influenza. I suspected a viral illness of some other sort. Patient has been prescribed symptomatic treatment from the emergency department. She is advised to follow-up with her primary care physician if her symptoms do not improve within the next week. Departure - Departure Disposition: 01 Home, Self Care Clinical Impression: Upper respiratory tract infection Qualifiers: URI type: unspecified viral URI Qualified Code(s): J06.9 - Acute upper respiratory infection, unspecified Condition: Stable Instructions: ED Viral Syndrome Prescriptions: Acetaminophen/Cod 300/30 [Tylenol #3] 2 each PO Q4-6H PRN #15 tablet PRN Reason: Cough Comments: Your chest x-ray has been read as normal by the radiologist. You have already been tested for COVID and influenza, which are negative. At this point in time, your most likely working through the course of a viral upper respiratory infection, which can cause a feeling of chest tightness and cough following sinus symptoms. Your body will fight this off on its own, but the cough sometimes can last 1 to 2 weeks afterward you will be placed on medication to help with the cough and your discomfort. Please be sure to drink plenty of fluid and follow-up with your primary care physician if you are not feeling any better in the next week. Discharge Date/Time: 08/11/19 11:54
[2019-08-11] MEDS ORDERED: ACETAMINOPHEN/CODEINE 300 MG/30 MG TABLET PO STA (11:40)
== END 2019-08-11 11:54 | disposition home or self-care (01) ==
LOC: ED 09:56
DX: J06.9 Acute upper respiratory infection, unspecified (principal); M32.9 Systemic lupus erythematosus, unspecified
CPT/HCPCS: 71046; 99283; 99284; A9270

== ENCOUNTER 2020-01-28 17:25 | Emergency (ER) | payer OTHER, MEDICAID ==
[2020-01-28 17:38] VITALS: BP 132/86
[2020-01-28] MEDS ORDERED: PENICILLIN VK 250 MG TABLET PO STA (17:44)
--- NOTE | 2020-01-28 17:46 | ED Physician Documentation ---
PD HPI HEENT - Stated complaint Stated Complaint: EAR/JAW PX - Chief complaint Chief Complaint: Heent - History obtained from History obtained from: Patient (Extraction on Friday and presents with worsening pain from the right jaw radiating throughout the face. Mild swelling there. 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 - Present Medications Home Medications: Ambulatory Orders Medication Instructions Recorded Confirmed Albuterol Sulfate [Proair Hfa 2 puffs INH Q4H PRN #1 inhaler 01/19/17 06/12/17 Inhaler] Citalopram [CeleXA] 20 mg PO DAILY 06/12/17 06/12/17 Docusate Sodium 250Mg Capsule 250 mg PO DAILY 06/12/17 06/12/17 [Colace 250Mg Capsule] Hydroxychloroquine [Plaquenil] 2 tab PO DAILY 06/12/17 06/12/17 Ibuprofen 600 mg PO Q6HR PRN 06/12/17 06/12/17 Levetiracetam [Keppra] 500 mg PO BID 06/12/17 06/12/17 Omeprazole [PriLOSEC] 20 mg PO DAILY 06/12/17 06/12/17 Promethazine [Phenergan] 25 mg PO Q6HR PRN 06/12/17 06/12/17 Amox/Clav 875/125 [Augmentin] 1 each PO Q12H #20 tablet 08/16/17 Ibuprofen [Motrin] 800 mg PO Q8H PRN #30 tablet 03/30/19 Acetaminophen/Cod 300/30 [Tylenol 2 each PO Q4-6H PRN #15 tablet 08/11/19 #3] Penicillin V Potassium 500 mg PO Q6HR #40 tablet 01/28/20 - Allergies Allergies/Adverse Reactions: Allergies Allergy/AdvReac Type Severity Reaction Status Date / Time nalbuphine [From Nubain] Allergy Unknown Verified 01/28/20 17:38 - Social History Does the pt smoke?: No Smoking Status: Never smoker PD ED PE NORMAL - Vitals Vital signs reviewed: Yes - General General: Alert and oriented X 3, No acute distress - HEENT HEENT: Other (Looks like a little bit of purulent material from the socket on the right mandible molar where the tooth was extracted. Very mild swelling and trismus there. No sublingual edema.) - Neuro Neuro: Alert and oriented X 3, Normal speech Results - Vitals Vitals: Vital Signs - 24 hr 01/28/20 17:28 Temperature 36.8 C Heart Rate 75 Respiratory 17 Rate Blood Pressure 132/86 H O2 Saturation 100 Oxygen O2 Source Room air PD MEDICAL DECISION MAKING - ED course ED course: She declined pain medication. Departure - Departure Disposition: 01 Home, Self Care Clinical Impression: Dental infection Condition: Good Record reviewed to determine appropriate education?: Yes Instructions: ED Tooth Pain Prescriptions: Penicillin V Potassium 500 mg PO Q6HR #40 tablet Comments: Followup with your dentist next week. Return if worsening.
== END 2020-01-28 17:51 | disposition home or self-care (01) ==
LOC: ED 17:25
DX: K04.7 Periapical abscess without sinus (principal); Z98.818 Other dental procedure status; M32.9 Systemic lupus erythematosus, unspecified
CPT/HCPCS: 99282; 99283; A9270

== ENCOUNTER 2020-02-21 17:45 | Outpatient (CLI) | payer OTHER, MEDICAID ==
--- NOTE | 2020-02-21 18:45 | XRAY Report ---
PROCEDURE: Toe(s) RT INDICATIONS: NONDISPLACED FX OF DISTAL PHALANX OF R 5TH TOE TECHNIQUE: AP view of the foot and 2 views of the right fifth toe acquired through COMPARISON: None. FINDINGS: Bones: Minimally displaced fracture is seen in the fifth proximal phalangeal base, best seen on AP vi ew. No suspicious bony lesions. A type II os naviculare is present. Soft tissues: No suspicious soft tissue densities. IMPRESSION: Minimally displaced fracture of the fifth proximal phalangeal shaft. Reviewed by: George Albrecht MD on 02/21/2020 5:43 PM [facility] Approved by: George Albrecht MD on 02/21/2020 5:43 PM [facility] Station ID: [id number]
== END 2020-02-21 23:59 | disposition home or self-care (01) ==
LOC: DI.N 17:45
PROVIDERS: ATTEND Physician Assistant Medical
DX: S92.514A Nondisplaced fracture of proximal phalanx of right lesser toe(s), initial encounter for closed fracture (principal)

== ENCOUNTER 2020-03-06 07:30 | Outpatient (CLI) | payer OTHER, MEDICAID ==
--- NOTE | 2020-03-06 09:22 | XRAY Report ---
PROCEDURE: Chest 2 View X-Ray INDICATIONS: Cough TECHNIQUE: 2 view(s) of the chest. COMPARISON: 01/19/2017. FINDINGS: Surgical changes and devices: None. Lungs and pleura: No pleural effusions or pneumothorax. Lungs are clear. Mediastinum: Mediastinal contours are normal. Heart size is normal. Bones and chest wall: No suspicious bony abnormalities. Soft tissues appear unremarkable. IMPRESSION: No acute cardiopulmonary process demonstrated radiographically. Reviewed by: Murray Bell MD on 03/06/2020 8:20 AM [facility] Approved by: Murray Bell MD on 03/06/2020 8:20 AM [facility] Station ID: [id number]
== END 2020-03-06 23:59 | disposition home or self-care (01) ==
LOC: DI.N 07:30
PROVIDERS: ATTEND Family Medicine
DX: R05 Cough (principal)

== ENCOUNTER 2020-04-04 08:11 | Emergency (ER) | payer OTHER, MEDICAID ==
[2020-04-04 08:33] VITALS: BP 136/94
--- NOTE | 2020-04-04 09:10 | ED Physician Documentation ---
History of Present Illness - Stated complaint Stated Complaint: COUGHING UP BLOOD/LEG SWELLING - Chief complaint Chief Complaint: Resp - History obtained from History obtained from: Patient - Additonal information Additional information: She comes emergency department chief complaint of cough for 4 weeks, now with blood-tinged sputum, and right leg pain and swelling. The patient states that she was initially thought to potentially have a viral illness when her cough started, and that she was tested for Covid and found to be negative. She was placed on a course of steroids at that time which did seem to improve the cough a little, but that once his steroids were over, the cough seemed to rebound. The patient states that the cough seems worse over the last approximately week and a half. She denies fevers but has noticed chills. No change in her ability to taste or smell. No shortness of breath. She states the cough keeps her up at night, and produces a moderate amount of brown-tinged yellowish sputum. Today, she noticed streaks of blood in the sputum. She states that for approximately a week, she has had some pain and swelling of her upper calf and around the knee area. Patient denies any strain or other injury that she knows of. No prior history of injury to the right knee. Patient does have a history of spontaneous formation of DVT in the distant past, she thinks approximately 13 or 14 years ago. The patient also had a high risk twin following that and was placed on anticoagulants at that time, she thinks more as a precaution, given her DVT history. Patient states she is concerned about formation of DVT again, as this is been an issue before. 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 Patient does not have any known contact with anybody with Covid. She states she works from home, but her kids do go to daycare. She goes to the grocery store once a week, she states. She has a history of SLE, and takes Plaquenil for this. No other complaints at this time. Review of Systems Ten Systems: 10 systems reviewed and negative Constitutional: reports: Chills. denies: Fever Eyes: reports: Reviewed and negative Ears: reports: Reviewed and negative Nose: reports: Reviewed and negative Throat: reports: Reviewed and negative Cardiac: reports: Reviewed and negative Respiratory: reports: Cough, Hemoptysis GI: reports: Reviewed and negative : reports: Reviewed and negative Skin: reports: Reviewed and negative Musculoskeletal: reports: Extremity pain, Joint pain, Extremity swelling Neurologic: reports: Reviewed and negative Psychiatric: reports: Reviewed and negative Endocrine: reports: Reviewed and negative Immunocompromised: reports: Reviewed and negative PD PAST MEDICAL HISTORY - Past Medical History Cardiovascular: Deep vein thrombosis Endocrine/Autoimmune: Systemic lupus erythematosus GI: GERD Musculoskeletal: Fibromyalgia, Rheumatoid arthritis - Past Surgical History 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, 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, 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 - Present Medications Home Medications: Ambulatory Orders Medication Instructions Recorded Confirmed Albuterol Sulfate [Proair Hfa 2 puffs INH Q4H PRN #1 inhaler 01/19/17 06/12/17 Inhaler] Citalopram [CeleXA] 20 mg PO DAILY 06/12/17 06/12/17 Docusate Sodium 250Mg Capsule 250 mg PO DAILY 06/12/17 06/12/17 [Colace 250Mg Capsule] Hydroxychloroquine [Plaquenil] 2 tab PO DAILY 06/12/17 06/12/17 Ibuprofen 600 mg PO Q6HR PRN 06/12/17 06/12/17 Levetiracetam [Keppra] 500 mg PO BID 06/12/17 06/12/17 Omeprazole [PriLOSEC] 20 mg PO DAILY 06/12/17 06/12/17 Promethazine [Phenergan] 25 mg PO Q6HR PRN 06/12/17 06/12/17 Amox/Clav 875/125 [Augmentin] 1 each PO Q12H #20 tablet 08/16/17 Ibuprofen [Motrin] 800 mg PO Q8H PRN #30 tablet 03/30/19 Acetaminophen/Cod 300/30 [Tylenol 2 each PO Q4-6H PRN #15 tablet 08/11/19 #3] Penicillin V Potassium 500 mg PO Q6HR #40 tablet 01/28/20 Azithromycin [Zithromax] 0 mg PO DAILY #6 tablet 04/04/20 Benzonatate [Tessalon] 100 mg PO TID PRN #20 capsule 04/04/20 - Allergies Allergies/Adverse Reactions: Allergies Allergy/AdvReac Type Severity Reaction Status Date / Time nalbuphine [From Nubain] Allergy Unknown Verified 04/04/20 08:33 - Social History Does the pt smoke?: No Smoking Status: Never smoker PD ED PE NORMAL - Vitals Vital signs reviewed: Yes - General General: Alert and oriented X 3, No acute distress, Well developed/nourished - HEENT HEENT: Atraumatic, PERRL, EOMI, Moist mucous membranes - Neck Neck: Supple, no meningeal sign - Cardiac Cardiac: RRR, No murmur, Strong equal pulses - Respiratory Respiratory: No respiratory distress, Clear bilaterally, Other (Intermittent fits of moderate, dry coughing.) - Abdomen Abdomen: Soft, Non tender, Non distended - Derm Derm: Normal color, Warm and dry, No rash - Extremities Extremities: No deformity, Other (Mild edema surrounding the and tenderness of right upper calf. No point tenderness over the R knee. Mild enlargement of right calf compared to left.) - Neuro Neuro: Alert and oriented X 3 - Psych Psych: Normal mood, Normal affect Results - Vitals Vitals: Oxygen O2 Source Room air - Rads (name of study) CXR Radiology: Final report received, EMP read indepedently, See rad report US RLE Radiology: Final report received, EMP read indepedently, See rad report PD MEDICAL DECISION MAKING - ED course Complexity details: reviewed results, re-evaluated patient, considered differential, d/w patient ED course: The patient was worked up with right knee x-ray, right lower extremity ultrasound, and chest x-ray. The patient's entire work-up was negative. We have discussed the patient most likely has a bronchitis, and that there is no evidence of a clot at this time. We have discussed home management of the symptoms, as well as the usual indications for return. Departure - Departure Disposition: 01 Home, Self Care Clinical Impression: Bronchitis, Strain of knee and leg, right Condition: Stable Instructions: ED Upper Resp Infec Abx Tx Prescriptions: Benzonatate [Tessalon] 100 mg PO TID PRN #20 capsule PRN Reason: Cough Azithromycin [Zithromax] 0 mg PO DAILY #6 tablet Comments: Your x-rays look good, and your ultrasound is negative for blood clot. Most likely, you started with a viral upper respiratory infection. It is possible that you have picked up a different virus over the last several weeks, which is kept the symptoms going; it is also possible, given the thick sputum and chills, as well as the fact that you are on an immunosuppressive medication, that you have developed bronchitis. As such, we will put you on a short course of antib iotics for this. We will also give you a medication that is unrelated to Robitussin to help with the cough. If you are not starting to feel noticeably better within the next 1 to 2 weeks, please follow-up with your primary care physician. As far as your right knee and leg pain and swelling, it is not clear exactly what is caused this, though it is possible you have some inflammation just from chronic wear and tear that is flaring up, or that you are having a flareup that is related to your lupus. Most of these kinds of things down on their own, but if you are not feeling better within the next couple of weeks, please speak with your primary doctor about this, as well. Discharge Date/Time: 04/04/20 10:56
--- NOTE | 2020-04-04 09:39 | XRAY Report ---
PROCEDURE: Chest 1 View X-Ray INDICATIONS: cough TECHNIQUE: One view of the chest was acquired. COMPARISON: 03/06/2020 FINDINGS: Surgical changes and devices: None. Lungs and pleura: No pleural effusions or pneumothorax. Lungs are clear. Mediastinum: Mediastinal contours appear normal. Heart size is normal. Bones and chest wall: No suspicious bony lesions. Overlying soft tissues appear unremarkable. IMPRESSION: No acute cardiopulmonary disease process. Reviewed by: Siobhan Irvin MD, PhD on 04/04/2020 9:38 AM [facility] Approved by: Siobhan Irvin MD, PhD on 04/04/2020 9:38 AM [facility] Station ID: [id number]
--- NOTE | 2020-04-04 09:40 | XRAY Report ---
PROCEDURE: Knee 3 View RT INDICATIONS: pain, swelling TECHNIQUE: 3 views of the right knee(s) were acquired. COMPARISON: None. FINDINGS: Bones: No fractures or dislocations. No suspicious bony lesions. Mild patellofemoral compartment os teoarthritis. Soft tissues: No joint effusion. No suspicious soft tissue calcifications. IMPRESSION: No acute osseous lesion. If there persistent symptoms or continued clinical concern for pathology, th en repeat plain film radiographs (7-10 days) or advanced imaging (CT, MR, bone scan) should be consid ered for further evaluation. Reviewed by: Siobhan Irvin MD, PhD on 04/04/2020 9:39 AM PST Approved by: Siobhan Irvin MD, PhD on 04/04/2020 9:39 AM PST Station ID: [id number]
--- NOTE | 2020-04-04 10:52 | Ultrasound Report ---
PROCEDURE: Duplex Ext Veins Right INDICATIONS: pain, swelling, h/o dvt TECHNIQUE: Real-time imaging, as well as color and pulse Doppler interrogation, were performed of the lower extr emity deep veins from the inguinal ligament to the popliteal fossa. COMPARISON: None. FINDINGS: The deep veins are normally compressible, and free of intraluminal thrombus. Color and pu lse Doppler demonstrate normal phasic intraluminal flow. There is normal augmentation response to di stal compression maneuver. IMPRESSION: No evidence of deep vein thrombosis involving the right lower extremity. Reviewed by: Siobhan Irvin MD, PhD on 04/04/2020 10:50 AM PST Approved by: Siobhan Irvin MD, PhD on 04/04/2020 10:50 AM PST Station ID: [id number]
== END 2020-04-04 10:56 | disposition home or self-care (01) ==
LOC: ED 08:11
DX: J40 Bronchitis, not specified as acute or chronic (principal); S86.911A Strain of unspecified muscle(s) and tendon(s) at lower leg level, right leg, initial encounter; X58.XXXA Exposure to other specified factors, initial encounter; M32.9 Systemic lupus erythematosus, unspecified; M06.9 Rheumatoid arthritis, unspecified; Z79.899 Other long term (current) drug therapy; Z86.718 Personal history of other venous thrombosis and embolism
CPT/HCPCS: 99284

== ENCOUNTER 2020-05-18 07:43 | Outpatient (CLI) | payer OTHER, MEDICAID ==
[2020-05-18 12:12] LABS: BASOPHILS % (AUTO) 0.4 %; EOSINOPHILS # (AUTO) 0.1 10^3/uL (0.0-0.7); EOSINOPHILS % (AUTO) 2.3 %; HGB - HEMOGLOBIN 14.3 g/dL (12.0-16.0); LYMPHOCYTES # (AUTO) 1.5 10^3/uL (1.5-3.5); LYMPHOCYTES % (AUTO) 26.6 %; MEAN CORPUSCULAR HEMOGLOBIN 30.9 pg (27.0-31.0); MEAN CORPUSCULAR HGB CONC 32.9 g/dL (32.0-36.0); MEAN CORPUSCULAR VOLUME 93.7 fL (81.0-99.0); MEAN PLATELET VOLUME 10.5 fL (7.9-10.8); MONOCYTES # (AUTO) 0.4 10^3/uL (0.0-1.0); MONOCYTES % (AUTO) 7.7 %; NEUTROPHILS # (AUTO) 3.6 10^3/uL (1.5-6.6); NEUTROPHILS % (AUTO) 62.8 %; PLT - PLATELET COUNT 280 10^3/uL (130-450); RED BLOOD COUNT 4.63 10^6/uL (4.20-5.40); RED CELL DISTRIBUTION WIDTH 12.4 % (12.0-15.0); WHITE BLOOD COUNT 5.7 x10^3/uL (4.8-10.8)
[2020-05-18 12:27] LABS: ALBUMIN 4.3 g/dL (3.2-5.5); ALBUMIN/GLOBULIN RATIO 1.2 (1.0-2.2); ALKALINE PHOSPHATASE 77 IU/L (42-121); ALT ALANINE AMINOTRANSFERASE 17 IU/L (10-60); AST ASPARTATE AMINOTRANSFERASE 19 IU/L (10-42); BILIRUBIN,TOTAL 0.6 mg/dL (0.2-1.0); BUN - BLOOD UREA NITROGEN 11 mg/dL (6-20); CALCIUM 9.6 mg/dL (8.5-10.3); CARBON DIOXIDE - CO2 23 mmol/L (21-32); CHLORIDE 101 mmol/L (101-111); CHOL/HDL RATIO 4.7 (<4.4); CHOLESTEROL 232 mg/dL; CREATININE 0.9 mg/dL (0.4-1.0); GLUCOSE 88 mg/dL (70-100); HDL CHOLESTEROL 49 mg/dL; LDL CHOLESTEROL,CALCULATED 164 mg/dL; LDL/HDL RATIO 3.3 (<4.4); TOTAL PROTEIN 7.8 g/dL (6.7-8.2); VLDL CHOLESTEROL 19 mg/dL
== END 2020-05-18 07:44 | disposition home or self-care (01) ==
LOC: LAB.N 07:43
PROVIDERS: ATTEND Nurse Practitioner Family
DX: F41.9 Anxiety disorder, unspecified (principal); Z13.1 Encounter for screening for diabetes mellitus; E03.9 Hypothyroidism, unspecified; D64.9 Anemia, unspecified; N93.9 Abnormal uterine and vaginal bleeding, unspecified; G40.909 Epilepsy, unspecified, not intractable, without status epilepticus; D89.89 Other specified disorders involving the immune mechanism, not elsewhere classified; F32.9 Major depressive disorder, single episode, unspecified
CPT/HCPCS: 36415; 80053; 80061; 83721; 84443; 85025

== ENCOUNTER 2020-06-05 07:37 | Outpatient (CLI) | payer OTHER, MEDICAID ==
[2020-06-07 20:31] LABS: ANA PATTERN Nuclear, Speckled; ANA SCREEN POSITIVE (NEGATIVE)
== END 2020-06-05 07:38 | disposition home or self-care (01) ==
LOC: LAB.N 07:37
PROVIDERS: ATTEND Family Medicine
DX: D89.89 Other specified disorders involving the immune mechanism, not elsewhere classified (principal)
CPT/HCPCS: 36415; 85651; 86038; 86140

== ENCOUNTER 2020-06-05 08:01 | Outpatient (CLI) | payer OTHER, MEDICAID ==
--- NOTE | 2020-06-05 17:30 | XRAY Report ---
PROCEDURE: Hips 2V BILAT INDICATIONS: L HIP PX TECHNIQUE: 2 views of the hip were acquired. COMPARISON: None FINDINGS: Bones: No fractures or dislocations. No suspicious bony lesions. The visualized pelvic ring appear s intact. Mild bilateral hip osseous hypertrophy compatible with osteoarthritis. Soft tissues: No suspicious soft tissue calcifications or masses. Intrauterine device projects in th e mid pelvis. IMPRESSION: Mild bilateral hip osteoarthritis. Reviewed by: Siobhan Irvin MD, PhD on 06/05/2020 5:28 PM PDT Approved by: Siobhan Irvin MD, PhD on 06/05/2020 5:28 PM PDT Station ID: [id number]
== END 2020-06-05 08:02 | disposition home or self-care (01) ==
LOC: DI.N 08:01
PROVIDERS: ATTEND Family Medicine
DX: M16.0 Bilateral primary osteoarthritis of hip (principal); D89.89 Other specified disorders involving the immune mechanism, not elsewhere classified
CPT/HCPCS: 36415; 85651; 86038; 86140

== ENCOUNTER 2020-09-07 14:25 | Outpatient (CLI) | payer OTHER, MEDICAID | END 2020-09-07 23:59 | disposition home or self-care (01) | LOC: LAB.N 14:25 | PROVIDERS: ATTEND Family Medicine | DX: J01.90 Acute sinusitis, unspecified (principal); Z20.822 Contact with and (suspected) exposure to COVID-19 ==

== ENCOUNTER 2021-02-24 08:00 | Outpatient (CLI) | payer OTHER, MEDICAID | END 2021-02-24 23:59 | disposition home or self-care (01) | LOC: LAB.N 08:00 | PROVIDERS: ATTEND Nurse Practitioner | DX: M32.9 Systemic lupus erythematosus, unspecified (principal); E03.9 Hypothyroidism, unspecified; J32.9 Chronic sinusitis, unspecified; B96.89 Other specified bacterial agents as the cause of diseases classified elsewhere; Z20.822 Contact with and (suspected) exposure to COVID-19 | CPT/HCPCS: 36415; 80053; 81001; 81599; 82570; 84156; 84439; 84443; 85025; 85651; 86038; 86140; 86160; 86376; 86800; 87086 ==

== ENCOUNTER 2021-02-24 09:19 | Outpatient (CLI) | payer OTHER, MEDICAID ==
[2021-02-24 13:41] LABS: BASOPHILS % (AUTO) 0.7 %; EOSINOPHILS # (AUTO) 0.1 10^3/uL (0.0-0.7); EOSINOPHILS % (AUTO) 1.9 %; HCT - HEMATOCRIT 44.1 % (37.0-47.0); HGB - HEMOGLOBIN 14.3 g/dL (12.0-16.0); LYMPHOCYTES # (AUTO) 1.7 10^3/uL (1.5-3.5); LYMPHOCYTES % (AUTO) 27.8 %; MEAN CORPUSCULAR HEMOGLOBIN 30.2 pg (27.0-31.0); MEAN CORPUSCULAR HGB CONC 32.4 g/dL (32.0-36.0); MEAN PLATELET VOLUME 10.4 fL (7.9-10.8); MONOCYTES # (AUTO) 0.4 10^3/uL (0.0-1.0); MONOCYTES % (AUTO) 7.2 %; NEUTROPHILS # (AUTO) 3.7 10^3/uL (1.5-6.6); NEUTROPHILS % (AUTO) 62.2 %; PLT - PLATELET COUNT 289 10^3/uL (130-450); RED BLOOD COUNT 4.74 10^6/uL (4.20-5.40); RED CELL DISTRIBUTION WIDTH 13.3 % (12.0-15.0); WHITE BLOOD COUNT 5.9 x10^3/uL (4.8-10.8)
[2021-02-24 14:03] LABS: ALBUMIN 4.5 g/dL (3.2-5.5); ALBUMIN/GLOBULIN RATIO 1.3 (1.0-2.2); ALKALINE PHOSPHATASE 73 IU/L (42-121); ALT ALANINE AMINOTRANSFERASE 18 IU/L (10-60); AST ASPARTATE AMINOTRANSFERASE 19 IU/L (10-42); BILIRUBIN,TOTAL 0.5 mg/dL (0.2-1.0); BUN - BLOOD UREA NITROGEN 10 mg/dL (6-20); CALCIUM 9.5 mg/dL (8.5-10.3); CARBON DIOXIDE - CO2 24 mmol/L (21-32); CHLORIDE 103 mmol/L (101-111); CREATININE 0.8 mg/dL (0.4-1.0); GFR - MDRD 79 (>89); GLUCOSE 89 mg/dL (70-100); POTASSIUM 4.2 mmol/L (3.5-5.0); SODIUM 137 mmol/L (135-145)
[2021-02-24 14:11] LABS: THYROID STIMULATING HORMONE 1.38 uIU/mL (0.34-5.60)
[2021-02-24 14:13] LABS: FREE T4 (FREE THYROXINE) 1.06 ng/dL (0.58-1.64)
[2021-02-24 14:25] LABS: CRP - C-REACTIVE PROTEIN < 1.0 mg/dL (0-1.0)
[2021-02-27 10:20] LABS: COMPLEMENT COMPONENT C3C 117 mg/dL (83-193); COMPLEMENT COMPONENT C4C 33 mg/dL (15-57)
[2021-02-27 15:50] LABS: THYROID PEROXIDASE ANTIBODIES >900 IU/mL (<9)
[2021-02-27 23:16] LABS: ANA PATTERN Nuclear, Speckled; ANA SCREEN POSITIVE (NEGATIVE)
== END 2021-02-24 09:20 | disposition home or self-care (01) ==
LOC: LAB.N 09:19
PROVIDERS: ATTEND Internal Medicine Rheumatology
DX: M32.9 Systemic lupus erythematosus, unspecified (principal); E03.9 Hypothyroidism, unspecified
CPT/HCPCS: 36415; 80053; 81001; 81599; 82570; 84156; 84439; 84443; 85025; 85651; 86038; 86140; 86160; 86376; 86800; 87086

== ENCOUNTER 2021-04-05 09:23 | Outpatient (CLI) | payer OTHER, MEDICAID ==
--- NOTE | 2021-04-05 15:47 | XRAY Report ---
PROCEDURE: Knee 2 View RT INDICATIONS: ASSESS LATERAL DJD/HX OF SLE AND CHRONIC RIGHT KNEE PAIN TECHNIQUE: 2 views of the right knee(s) were acquired. COMPARISON: 04/04/2021 x-ray knee FINDINGS: Bones: No fractures or dislocations. No suspicious bony lesions. Mild patellofemoral and minimal medial compartment narrowing. No erosions. No appreciable change comp ared to prior exam. Soft tissues: Trace joint effusion. No suspicious soft tissue calcifications. IMPRESSION: No visualized acute fracture or dislocation. However, occult injury cannot be excluded. Recommend short interval imaging follow-up in 7-10 days as clinically indicated for additional evalua tion. Reviewed by: Rosy Argueta MD on 04/05/2021 3:45 PM PST Approved by: Rosy Argueta MD on 04/05/2021 3:45 PM PST Station ID: [id number]
== END 2021-04-05 09:24 | disposition home or self-care (01) ==
LOC: DI.N 09:23
PROVIDERS: ATTEND Internal Medicine
DX: M25.562 Pain in left knee (principal); M25.561 Pain in right knee

== ENCOUNTER 2021-04-26 07:33 | Outpatient (CLI) | payer OTHER, MEDICAID ==
--- NOTE | 2021-04-26 10:30 | MRI Report ---
PROCEDURE: Knee RT W/O INDICATIONS: KNEE JOINT PAIN TECHNIQUE: Noncontrast sagittal PD fast spin echo and T2 fast spin echo with fat saturation, sagittal 3-D gradie nt sequence with fat saturation; coronal T1 spin echo and PD fast spin echo with fat saturation, and axial PD fast spin echo with fat saturation through the knee. COMPARISON: None. FINDINGS: Image quality: Excellent. Menisci: The medial and lateral menisci demonstrate normal morphology and internal signal. The meni scal root ligaments appear intact. Cruciate ligaments: The anterior and posterior cruciate ligaments appear intact. Medial structures: Very low-grade MCL sprain is seen. The posterior oblique ligament, semimembranosu s tendon insertions, and oblique popliteal ligament, and meniscocapsular junction appear intact. Vis ualized portions of the pes anserinus tendons appear normal. No abnormal bursal fluid. Lateral structures: The lateral collateral ligament, long and short heads of the biceps femoris tend on appear intact. The popliteus tendon appears normal; the popliteofibular ligament appears intact. The posterosuperior and anteroinferior popliteomeniscal fascicles appear intact. The arcuate and fa bellofibular ligaments appear intact, around the lateral inferior geniculate artery. Iliotibial band appears normal. Anterior structures: There is distal quadriceps tendinosis at its superior patella insertion. Patella r tendon is grossly intact. Patellar alignment is normal. No femoral trochlear dysplasia or ventral trochlear prominence. No edema in the infrapatellar fat pad. Bones and cartilage: No bone marrow contusions or fractures. Mild lateral femoral tibial compartment joint space narrowing and low-grade chondromalacia is noted. Low-grade chondromalacia is also seen t hroughout patella cartilage. Joint space: There is small amount of joint fluid. A small popliteal cyst is seen.. Normal appearin g synovial plicae are incidentally noted. IMPRESSION: 1. Mild lateral femoral tibial compartment osteoarthritis and low-grade chondromalacia. Low-grade cho ndromalacia patella. No fracture or dislocation. Small amount of joint fluid. Small popliteal cyst. 2. Cruciate ligaments are intact. Very low-grade MCL sprain. 3. Distal quadriceps tendinosis at its superior patella insertion. Patellar tendon is intact. 4. No evidence of focal meniscal tear. Reviewed by: Colin Ramires MD on 04/26/2021 10:29 AM PST Approved by: Colin Ramires MD on 04/26/2021 10:29 AM PST Station ID: [id number]
== END 2021-04-26 07:34 | disposition home or self-care (01) ==
LOC: DI 07:33
PROVIDERS: ATTEND Internal Medicine
DX: M17.11 Unilateral primary osteoarthritis, right knee (principal); M22.41 Chondromalacia patellae, right knee; M71.21 Synovial cyst of popliteal space [Baker], right knee; M25.461 Effusion, right knee; S83.411A Sprain of medial collateral ligament of right knee, initial encounter; M67.961 Unspecified disorder of synovium and tendon, right lower leg

== ENCOUNTER 2021-07-16 12:14 | Emergency (ER) | payer OTHER, MEDICAID ==
[2021-07-16 12:35] VITALS: BP 142/79
== END 2021-07-16 13:45 | disposition left against medical advice (07) ==
LOC: ED 12:14
DX: Z53.21 Procedure and treatment not carried out due to patient leaving prior to being seen by health care provider (principal)
CPT/HCPCS: 93005

== ENCOUNTER 2022-04-05 07:19 | Day surgery (SDC) | payer OTHER, MEDICAID ==
[2022-04-05] MEDS ORDERED: LACTATED RINGERS 1,000 ML IV ONE (07:38)
--- NOTE | 2022-04-05 08:21 | ANESTHESIA ---
Pre-Anesthesia VS, & Labs - Diagnosis dysphagia - Procedure EGD Vital Signs: Temp Pulse Resp BP Pulse Ox O2 Flow Rate 36.2 C L 66 14 125/77 98 0 04/05/22 07:39 04/05/22 07:39 04/05/22 07:39 04/05/22 07:39 04/05/22 07:39 04/05/22 07:39 Height: 5 ft 10 in Weight (kg): 100.2 kg Body Mass Index: 31.6 BMI Classification: Obese - NPO >8 hours - Is Patient ?: No Home Medications and Allergies Home Medications: Ambulatory Orders Levothyroxine Sodium [Levothyroxine] 1 cap PO DAILY 04/04/22 Hydroxychloroquine [Plaquenil] 2 tab PO DAILY 06/12/17 Ibuprofen 600 mg PO Q6HR PRN 06/12/17 Levothyroxine Sodium [Levothyroxine] 1 cap PO DAILY 04/04/22 Allergies/Adverse Reactions: Allergies Allergy/AdvReac Type Severity Reaction Status Date / Time nalbuphine [From Nubain] Allergy Rash Verified 04/04/22 12:34 Anes History & Medical History - Anesthetic History Anesthesia Complications: reports: No previous complications Family history of Anesthesia Complications: Denies Family history of Malignant Hyperthermia: Denies - Medical History Cardiovascular: reports: Deep vein thrombosis Gastrointestinal: reports: GERD Musculoskeletal: reports: Fibromyalgia, Rheumatoid arthritis Endocrine/Autoimmune: reports: Systemic lupus erythematosus Smoking Status: Never smoker - Surgical History Gynecologic: reports: section, 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, Other Exam General: Alert, Oriented x3, Cooperative Dental: WNL Mouth Openin Fingerbreadth Neck Mobility: Normal Mallampati classification: II Thyromental Distance: 4-6 cm Respiratory: Lungs clear Cardiovascular: Regular rate Plan Anesthesia Type: General Consent for Procedure(s) Verified and Reviewed: Yes Code Status: Attempt Resuscitation ASA classification: 2-Mild systemic disease Is this case an emergency?: No
[2022-04-05] MEDS ORDERED: LIDOCAINE-MPF 2% 5 ML VIAL ONE (08:26)
[2022-04-05] MEDS ORDERED: MIDAZOLAM 2 MG/2 ML VIAL ONE (08:26)
[2022-04-05] MEDS ORDERED: PROPOFOL 200 MG/20 ML VIAL IVP ONE (08:30)
--- NOTE | 2022-04-05 08:39 | HISTORY & PHYSICAL EXAMINATION ---
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, Other Meds/Allgy - Home Medications Home Medications: Ambulatory Orders Medication Instructions Recorded Confirmed Albuterol Sulfate [Proair Hfa 2 puffs INH Q4H PRN #1 inhaler 01/19/17 04/04/22 Inhaler] Hydroxychloroquine [Plaquenil] 2 tab PO DAILY 06/12/17 04/04/22 Ibuprofen 600 mg PO Q6HR PRN 06/12/17 04/04/22 Ibuprofen [Motrin] 800 mg PO Q8H PRN #30 tablet 03/30/19 04/04/22 Levothyroxine Sodium 1 cap PO DAILY 04/04/22 04/04/22 [Levothyroxine] - Allergies Allergies/Adverse Reactions: Allergies Allergy/AdvReac Type Severity Reaction Status Date / Time nalbuphine [From Nubain] Allergy Rash Verified 04/04/22 12:34 Review of Systems - Other Findings Other Findings: 10 pt ros as above otherwise unremarkable Exam - Vital Signs Reviewed Vital Signs: Yes Vital Signs: Vital Signs x48h Temp Pulse Resp BP Pulse Ox O2 Flow Rate 04/05/22 07:39 36.2 C L 66 14 125/77 98 0 - Physical Exam General Appearance: positive: No acute distress, Alert Eyes Bilateral: positive: PERRL, EOMI ENT: positive: No signs of dehydration Neck: positive: No JVD, Trachea midline Respiratory: positive: No respiratory distress, Breath sounds nml Cardiovascular: positive: Regular rate & rhythm Abdomen: positive: Non-tender, No distention Neurologic/Psychiatric: positive: Oriented x3 Conclusion/Plan - Problem List (1) Dysphagia Conclusion/Plan: plan egd with biopsies parq held and consent obtained
[2022-04-05] MEDS ORDERED: LACTATED RINGERS 600 ML IV ONE (09:00)
[2022-04-05 09:18] VITALS: BP 110/83
--- NOTE | 2022-04-05 14:00 | ANESTHESIA POST OP EVALUATION ---
Anesthesia Post Eval - Post Anesthesia Eval Vitals: Last Vital Signs Temp 36.0 C L 04/05/22 09:16 Pulse 81 04/05/22 09:16 Resp 16 04/05/22 09:16 BP 110/83 H 04/05/22 09:16 Pulse Ox 99 04/05/22 09:16 O2 Flow Rate 0 04/05/22 07:39 CV Function Including HR & BP: Stable Pain Control: Satisfactory Nausea & Vomiting: Negative Mental Status: Baseline Respiratory Status: Airway Patent Hydration Status: Satisfactory Anesthesia Complications: None
== END 2022-04-05 07:20 | disposition home or self-care (01) ==
LOC: SDS 07:19
PROVIDERS: ATTEND Surgery
PROC: 0DB78ZX Excision of Stomach, Pylorus, Via Natural or Artificial Opening Endoscopic, Diagnostic (ICD-10-PCS; 2022-04-05)
PROC: 0DB28ZX Excision of Middle Esophagus, Via Natural or Artificial Opening Endoscopic, Diagnostic (ICD-10-PCS; 2022-04-05)
PROC: 0DB38ZX Excision of Lower Esophagus, Via Natural or Artificial Opening Endoscopic, Diagnostic (ICD-10-PCS; 2022-04-05)
PROC: 0DB98ZX Excision of Duodenum, Via Natural or Artificial Opening Endoscopic, Diagnostic (ICD-10-PCS; principal; 2022-04-05 08:30)
DX: R13.10 Dysphagia, unspecified (principal); M32.9 Systemic lupus erythematosus, unspecified; E66.9 Obesity, unspecified; Z68.31 Body mass index [BMI] 31.0-31.9, adult
CPT/HCPCS: 43239; J7120

== ENCOUNTER 2022-08-11 12:41 | Outpatient (CLI) | payer OTHER, MEDICAID ==
--- NOTE | 2022-08-11 13:13 | CT Report ---
PROCEDURE: CHEST WO INDICATIONS: SJOGRENS SYNDROME TECHNIQUE: Noncontrast 1mm axial images were acquired from the pulmonary apices to the posterior costophrenic an gles. Axial 5 mm soft tissue kernel reconstructions were performed as well as 8 mm axial MIP and cor onal and sagittal 5 mm reformations. For radiation dose reduction, the following was used: automate d exposure control, adjustment of mA and/or kV according to patient size. COMPARISON: None FINDINGS: Image quality: Excellent. Lungs and pleura: No consolidation. No pleural effusions. No pneumothorax. 5 mm diameter subpleural nodule within the right lower lobe posteriorly. Mediastinum: Heart size is normal. No pericardial effusions. No mediastinal adenopathy by size criter ia. No large vessel abnormality. Chest wall and lower neck: Thyroid is unremarkable. No axillary or supraclavicular adenopathy by size . Bones: No aggressive osseous abnormality. Upper Abdomen: Unremarkable. IMPRESSION: 1. 5 mm nodule within the right lower lobe. Follow-up is recommended as below. Solid nodules Solitary nodule size: <6 mm *low risk patients: no follow-up needed *high risk patients: optional CT at 12 months Solitary nodule size: 6-8 mm *low risk patients: follow-up at 6-12 months, then consider further follow-up at 18-24 months *high risk patients: initial follow-up CT at 6-12 months and then at 18-24 months if no change Solitary nodule size: >8 mm *either low or high risk patients *consider follow-up CT at 3 months, and/or CT-PET, and/or biopsy Multiple nodules size: <6 mm *low risk patients: no routine follow-up *high risk patients: optional CT at 12 months Multiple nodules size: 6-8 mm *low risk patients: follow-up at 3-6 months, then consider further follow-up at 18-24 months *high risk patients: follow-up at 3-6 months, then at 18-24 months if no change Multiple nodules size: >8 mm *low risk patients: follow-up at 3-6 months, then consider further follow-up at 18-24 months *high risk patients: follow-up at 3-6 months, then at 18-24 months if no change Subsolid nodules Solitary pure ground-glass nodule *nodule size <6mm *no CT follow-up required *nodule size "e6mm *follow up CT at 6-12 months, then every 2 years until 5 years Solitary part-solid nodule *nodule size <6mm *no CT follow-up required *nodule size "e6mm *follow-up CT at 3-6 months *if unchanged, and solid component remains <6mm, then annual follow-up for 5 years Multiple subsolid nodules *nodule size <6mm *follow-up CT at 3-6 months *consider further follow-up at 2 and 4 years if stable *nodule size "e6mm *follow-up CT at 3-6 months subsequent management based on the most suspicious nodule(s) Reviewed by: Zeny Fofana MD on 08/11/2022 12:11 PM PETER Approved by: Zeny Fofana MD on 08/11/2022 12:11 PM PETER Station ID: [id number]
== END 2022-08-11 12:42 | disposition home or self-care (01) ==
LOC: DI 12:41
PROVIDERS: ATTEND Internal Medicine
DX: R91.1 Solitary pulmonary nodule (principal)

== ENCOUNTER 2022-08-21 07:53 | Outpatient (CLI) | payer OTHER, MEDICAID ==
--- NOTE | 2022-08-22 08:58 | Mammography Report ---
BILATERAL DIGITAL SCREENING MAMMOGRAM 3D/2D: 08/21/2022 CLINICAL: Family history of breast cancer. Routine screening. Comparison is made to exam dated: 07/24/2018 mammogram - [facility]. Both breasts are heterogeneously dense, which may obscure small masses (category c / 51-75% glandular tissue). There is a stable benign focal asymmetry in the left breast. There also is a biopsy clip in the left breast. No significant masses, calcifications, or other findings are seen in either breast. There has been no significant interval change. IMPRESSION: BENIGN There is no mammographic evidence of malignancy. A 1 year screening mammogram is recommended. Based on Tyrer-Cuzick model (a risk assessment model), the patient's lifetime risk is 43.8% and her 1 0 year risk is 18.9%. If a patient has an elevated risk, a more comprehensive evaluation should be co nsidered and/or a referral to a genetic counselor. The [place] [employer], [place] [employer], and NCCN Guidelines advise the consideration of Breast MRI as an adjunct to screening mammo graphy in patients whose "Lifetime risk to develop breast cancer" is 20% or higher. This exam was interpreted at Station ID: [id number]. NOTE: For mammograms, a report in lay terms will be sent to the patient. Approximately 15% of breast malignancies will not be visualized mammographically. In the management of a palpable breast mass, a negative mammogram must not discourage biopsy of a clinically suspicious lesion. Electronically Signed By: Quentin fagan/jackie:08/21/2022 09:38:00 letter sent: No_Letter ACR BI-RADS Category 2: Benign Finding(s) 3342F PARENCHYMAL PATTERN: (D) - The breast(s) demonstrate(s) heterogeneously dense fibroglandular parenchy ma. BI-RADS CATEGORY: (2) - 2 Mammogram [id number] 1 year screening LATERALITY: (B)
== END 2022-08-21 07:54 | disposition home or self-care (01) ==
LOC: DI.N 07:53
PROVIDERS: ATTEND Internal Medicine
DX: Z12.31 Encounter for screening mammogram for malignant neoplasm of breast (principal); Z80.3 Family history of malignant neoplasm of breast

== ENCOUNTER 2023-01-06 10:03 | Outpatient (CLI) | payer OTHER ==
[2023-01-06 13:20] LABS: CHOL/HDL RATIO 4.9 (<4.4); CHOLESTEROL 209 mg/dL; HDL CHOLESTEROL 43 mg/dL; LDL CHOLESTEROL,CALCULATED 149 mg/dL; LDL/HDL RATIO 3.5 (<4.4); TRIGLYCERIDES 83 mg/dL (48-352); VLDL CHOLESTEROL 17 mg/dL
[2023-01-06 13:34] LABS: THYROID STIMULATING HORMONE 0.02 uIU/mL (0.34-5.60)
== END 2023-01-06 10:04 | disposition home or self-care (01) ==
LOC: LAB.N 10:03
PROVIDERS: ATTEND Internal Medicine
DX: E03.9 Hypothyroidism, unspecified (principal); E78.5 Hyperlipidemia, unspecified
CPT/HCPCS: 36415; 80061; 83721; 84439; 84443

== ENCOUNTER 2023-06-02 14:29 | Outpatient (CLI) | payer OTHER ==
[2023-06-02 18:18] LABS: THYROID STIMULATING HORMONE 0.14 uIU/mL (0.34-5.60)
== END 2023-06-02 14:30 | disposition home or self-care (01) ==
LOC: LAB.N 14:29
PROVIDERS: ATTEND Internal Medicine
DX: E06.3 Autoimmune thyroiditis (principal)
CPT/HCPCS: 36415; 84439; 84443

== ENCOUNTER 2023-06-05 08:00 | Outpatient (CLI) | payer OTHER ==
[2023-06-05 12:38] LABS: INFLUENZA A- RESP PCR PANEL NOT DETECTED; INFLUENZA B - RESP PCR PANEL NOT DETECTED; RSV- RESP PCR PANEL NOT DETECTED; SARS-CoV-2 -RESP PCR PANEL NOT DETECTED
== END 2023-06-05 23:59 | disposition home or self-care (01) ==
LOC: LAB.WCP 08:00
PROVIDERS: ATTEND Internal Medicine
DX: U07.1 COVID-19 (principal)
CPT/HCPCS: 87637

== ENCOUNTER 2023-07-12 10:53 | Outpatient (CLI) | payer OTHER ==
[2023-07-15 00:07] LABS: HIV SCREEN 4TH GENERATION Non Reactive (Non Reactive)
[2023-07-15 00:08] LABS: HBsAG SCREEN Negative (Negative)
== END 2023-07-12 10:54 | disposition home or self-care (01) ==
LOC: LAB.N 10:53
PROVIDERS: ATTEND Internal Medicine
DX: Z20.5 Contact with and (suspected) exposure to viral hepatitis (principal); Z13.811 Encounter for screening for lower gastrointestinal disorder
CPT/HCPCS: 36415; 86364; 86704; 86803; 87340; 87389

== ENCOUNTER 2023-09-01 13:38 | Outpatient (CLI) | payer OTHER ==
--- NOTE | 2023-09-01 16:45 | Ultrasound Report ---
PROCEDURE: Pelvic w/Transvaginal INDICATIONS: AUB TECHNIQUE: Real-time scanning was performed of the pelvic organs, with image documentation. Additional endovagi nal scanning was necessary due to incomplete visualization of the adnexal and endometrial structures by transabdominal scanning. COMPARISON: 07/24/2018 FINDINGS: Uterus: 11.8 x 5.9 x 7.2 cm. The endometrium measures 6 mm. Anteverted positioning. Heterogeneous ech otexture. Overall uterus is enlarged. The IUD is difficult to visualize, probably within the lower ut erine segment, with the body may be extending to the cervix. There are nabothian cysts. Ovaries: Nonenlarged bilaterally. Other: There is fluid within the cervical canal. IMPRESSION: Possible uterine enlargement, nonspecific, sometimes seen with adenomyosis. The endometrium itself is not thickened measuring 6 mm. Moderate endocervical fluid. IUD is difficult to visualize completely, but is likely low lying, partially within the endocervix. Nabothian cysts are present. Nonenlarged ovaries bilaterally. Reviewed by: Akira Garza MD on 09/01/2023 4:44 PM PDT Approved by: Akira Garza MD on 09/01/2023 4:44 PM PDT Station ID: [id number]
== END 2023-09-01 13:39 | disposition home or self-care (01) ==
LOC: DI 13:38
PROVIDERS: ATTEND Obstetrics & Gynecology
DX: N88.8 Other specified noninflammatory disorders of cervix uteri (principal); Z97.5 Presence of (intrauterine) contraceptive device

== ENCOUNTER 2023-09-01 14:14 | Outpatient (CLI) | payer OTHER ==
--- NOTE | 2023-09-02 10:56 | Mammography Report ---
BILATERAL DIGITAL DIAGNOSTIC MAMMOGRAM 3D/2D WITH SPOT COMPRESSION: 09/01/2023 CLINICAL: Palpable right breast lump. Due for bilateral exam. Comparison is made to exams dated: 08/21/2022 mammogram and 07/24/2018 mammogram - [facility]. Both breasts are heterogeneously dense, which may obscure small masses (category c / 51-75% glandular tissue). No significant masses, calcifications, or other findings are seen in either breast. IMPRESSION: INCOMPLETE: NEEDS ADDITIONAL IMAGING EVALUATION There is no mammographic abnormality seen in the right breast to correspond with the palpable abnorma lity, however, A targeted ultrasound of the right breast is recommended and will be performed immedia tely following this exam. Based on Tyrer-Cuzick model (a risk assessment model), the patient's lifetime risk is 42.8% and her 1 0 year risk is 18.3%. If a patient has an elevated risk, a more comprehensive evaluation should be co nsidered and/or a referral to a genetic counselor. The [place] [employer], [place] [employer], and NCCN Guidelines advise the consideration of Breast MRI as an adjunct to screening mammo graphy in patients whose "Lifetime risk to develop breast cancer" is 20% or higher. This exam was interpreted at Station ID: [id number]. NOTE: For mammograms, a report in lay terms will be sent to the patient. Approximately 15% of breast malignancies will not be visualized mammographically. In the management of a palpable breast mass, a negative mammogram must not discourage biopsy of a clinically suspicious lesion. Electronically Signed By: Peggy Sheikh M.D. lk/:09/01/2023 14:59:13 ACR BI-RADS Category 0: Incomplete 3340F PARENCHYMAL PATTERN: (D) - The breast(s) demonstrate(s) heterogeneously dense fibroglandular parenchy ma. BI-RADS CATEGORY: (0) - 0 RECOMMENDATION: (ADDMAM) - Recommend additional mammographic views. [id number] Immediate follow-up LATERALITY: (B)
--- NOTE | 2023-09-02 10:56 | Ultrasound Report ---
LIMITED ULTRASOUND OF RIGHT BREAST: 09/01/2023 CLINICAL: Palpable right breast lump. Comparison is made to exams dated: 09/01/2023 mammogram, 08/21/2022 mammogram, and 07/24/2018 mammogram - [facility]. Ultrasound of the right breast 9-10 o'clock region was performed on the area of interest. Estrada scale images of the real-time examination were reviewed. IMPRESSION: NEGATIVE There is no sonographic evidence of malignancy. There is no mammographic or sonographic abnormality seen in the right breast to correspond with the p alpable abnormality, however, clinical followup is recommended. Return to annual mammogram screening schedule is recommended. Based on Tyrer-Cuzick model (a risk assessment model), the patient's lifetime risk is 42.8% and her 1 0 year risk is 18.3%. If a patient has an elevated risk, a more comprehensive evaluation should be co nsidered and/or a referral to a genetic counselor. The [place] [employer], [place] [employer], and NCCN Guidelines advise the consideration of Breast MRI as an adjunct to screening mammo graphy in patients whose "Lifetime risk to develop breast cancer" is 20% or higher. This exam was interpreted at Station ID: [id number]. Electronically Signed By: Peggy Sheikh M.D. lk/:09/01/2023 15:00:33 letter sent: No_Letter Ultrasound BI-RADS: 1 Negative BI-RADS CATEGORY: (1) - 1 Mammogram [id number] return to screening LATERALITY: (B)
== END 2023-09-01 14:15 | disposition home or self-care (01) ==
LOC: DI 14:14
PROVIDERS: ATTEND Obstetrics & Gynecology
DX: N63.10 Unspecified lump in the right breast, unspecified quadrant (principal); R92.333 Mammographic heterogeneous density, bilateral breasts; N88.8 Other specified noninflammatory disorders of cervix uteri; Z97.5 Presence of (intrauterine) contraceptive device

== ENCOUNTER 2023-10-28 13:29 | Outpatient (CLI) | payer OTHER ==
[2023-10-28 19:13] LABS: BASOPHILS % (AUTO) 0.6 %; EOSINOPHILS # (AUTO) 0.1 10^3/uL (0.0-0.7); EOSINOPHILS % (AUTO) 1.6 %; HCT - HEMATOCRIT 42.5 % (37.0-47.0); HGB - HEMOGLOBIN 13.4 g/dL (12.0-16.0); LYMPHOCYTES # (AUTO) 1.7 10^3/uL (1.5-3.5); LYMPHOCYTES % (AUTO) 33.8 %; MEAN CORPUSCULAR HEMOGLOBIN 29.6 pg (27.0-31.0); MEAN CORPUSCULAR HGB CONC 31.5 g/dL (32.0-36.0); MEAN CORPUSCULAR VOLUME 93.8 fL (81.0-99.0); MEAN PLATELET VOLUME 10.8 fL (7.9-10.8); MONOCYTES # (AUTO) 0.4 10^3/uL (0.0-1.0); MONOCYTES % (AUTO) 7.4 %; NEUTROPHILS # (AUTO) 2.8 10^3/uL (1.5-6.6); NEUTROPHILS % (AUTO) 56.4 %; PLT - PLATELET COUNT 254 10^3/uL (130-450); RED BLOOD COUNT 4.53 10^6/uL (4.20-5.40); RED CELL DISTRIBUTION WIDTH 12.9 % (12.0-15.0)
[2023-10-28 19:32] LABS: ALBUMIN 4.6 g/dL (3.2-5.5); ALBUMIN/GLOBULIN RATIO 1.5 (1.0-2.2); BILIRUBIN,TOTAL 0.4 mg/dL (0.2-1.0); CALCIUM 10.2 mg/dL (8.5-10.3); CREATININE 0.8 mg/dL (0.6-1.3); TOTAL PROTEIN 7.7 g/dL (6.4-8.9)
[2023-10-28 19:40] LABS: INR 1.1 (0.8-1.2); PT - PROTHROMBIN TIME 12.1 secs (9.9-12.6)
== END 2023-10-28 13:30 | disposition home or self-care (01) ==
LOC: LAB.N 13:29
PROVIDERS: ATTEND Physician Assistant
DX: R89.4 Abnormal immunological findings in specimens from other organs, systems and tissues (principal)
CPT/HCPCS: 36415; 80053; 81599; 82306; 82607; 82746; 83540; 84466; 84590; 85025; 85610

== ENCOUNTER 2023-12-03 08:11 | Outpatient (CLI) | payer OTHER ==
--- NOTE | 2023-12-03 16:13 | DEXA Report ---
PROCEDURE: Dexa Spine and/or Hip INDICATIONS: CELIAC DISEASE TECHNIQUE: Dual energy x-ray absorptiometry (DXA) was performed on a [employer]. Regions measur ed are the AP Spine, femoral neck, and if needed forearm. COMPARISON: None FINDINGS: Lumbar Spine: Bone Mineral Density: 1.1-5 g/cm/cm,T score: -0.5. Left Femoral Neck: Bone Mineral Density: 0.953 g/cm/cm, T score: -0.6. Left Hip: Bone Mineral Density: 0.970 g/cm/cm,T score: -0.3. FRAX risk factors: None given. Not applicable (T score greater or equal to -1.0: NORMAL) (T score from -1.1 to -2.4: OSTEOPENIA) (T score less than or equal to -2.5 to: OSTEOPOROSIS) Impression: By WHO criteria, this patient has normal bone mineral density. Patients with diagnosis of osteoporosis or osteopenia should have regular bone mineral density assess ment. For those eligible for Medicare, routine testing is allowed once every 2 years. Testing frequ ency can be increased for patients who have rapidly progressing disease or for those who are receivin g medical therapy to restore bone mass. Reviewed by: Rosy Argueta MD on 12/03/2023 4:12 PM PDT Approved by: Rosy Argueta MD on 12/03/2023 4:12 PM PDT Station ID: [id number]
== END 2023-12-03 08:12 | disposition home or self-care (01) ==
LOC: DI 08:11
PROVIDERS: ATTEND Internal Medicine
DX: K90.0 Celiac disease (principal)

== ENCOUNTER 2023-12-03 08:12 | Outpatient (CLI) | payer OTHER ==
--- NOTE | 2023-12-03 11:55 | Ultrasound Report ---
Abdomen Limited HISTORY: Popping sensation COMPARISON: None. TECHNIQUE: Targeted ultrasound at patient's area of pain, about the midline upper abdomen, was perfor med. FINDINGS: At patient's area of pain, there is no associated ventral hernia or diastases. There is protrusion of a 1.4 cm hyperechoic structure at the anterior abdominal wall with intensive posterior acoustic shad owing with Valsalva maneuver, which may represent an osseous structure. IMPRESSION: 1.No hernia or abdominal wall diastases at patient's area of pain. 2.Protrusion of a 1.4 cm structure at the anterior abdominal wall with Valsalva maneuver, which may r epresent an osseous structure. Reviewed by: Parris Buckley MD on 12/03/2023 11:54 AM PDT Approved by: Parris Buckley MD on 12/03/2023 11:54 AM PDT Station ID: [id number]
== END 2023-12-03 08:13 | disposition home or self-care (01) ==
LOC: DI 08:12
PROVIDERS: ATTEND Internal Medicine
DX: R10.9 Unspecified abdominal pain (principal)

== ENCOUNTER 2023-12-03 08:13 | Outpatient (CLI) | payer OTHER ==
--- NOTE | 2023-12-03 15:26 | CT Report ---
Chest WO: 12/03/2023 8:32 AM PDT CLINICAL HISTORY: 43 years of age, Female, RLL PULMONARY NODULE. COMPARISON: 08/11/2022 TECHNIQUE: A CT scan of the chest was performed. Intravenous contrast media was not administered. Im ages were recorded and evaluated at appropriate window settings. Reformats: axial MIP of the chest, c oronal and sagittal. For radiation dose reduction, the following was used: automated exposure control , adjustment of mA and/or kV according to patient size. FINDINGS: Lungs:5 mm subpleural pulmonary nodule in the right lower lobe (4:75), unchanged from prior exam. No pleural effusion or pneumothorax. No muscle edema focal consolidation. Soft tissue/mediastinum/heart: Heart is normal in size. No pericardial effusion.No significant archuleta ry artery calcification. Normal thoracic aorta. No thoracic aortic aneurysm. No mediastinal, hilar, or axillary lymphadenopathy. Visualized portion of the upper abdomen:Unremarkable Bones: No suspicious bony lesion. IMPRESSION: 1.5 mm pulmonary nodule in the right lower lobe, unchanged from prior exam. Reviewed by: Parris Buckley MD on 12/03/2023 3:25 PM PDT Approved by: Parris Buckley MD on 12/03/2023 3:25 PM PDT Station ID: [id number]
== END 2023-12-03 08:14 | disposition home or self-care (01) ==
LOC: DI 08:13
PROVIDERS: ATTEND Internal Medicine
DX: R91.1 Solitary pulmonary nodule (principal)